=== PATIENT | female | born 1950 | race Caucasian/White ===

== ENCOUNTER → 2021-07-04 11:40 | Outpatient (CLI) | payer MEDICARE, SELFPAY ==
--- NOTE | ~2021-07-04 | CT_ITS ---
EXAMINATION: CT sinus wo con DATE: 07/04/2021 11:56 INDICATION: Chronic sinusitis TECHNIQUE: Computed tomography (CT) of the paranasal sinuses was performed without intravenous contra st. The dose-length product (DLP) was 264.97 mGy-cm. Iterative reconstruction was used. COMPARISON: None FINDINGS: There is normal development and pneumatization of the paranasal sinuses. There is mild muco evelyne thickening of the right maxillary sinus. The paranasal sinuses are otherwise clear. The bilateral ostiomeatal complexes are patent. Visualized soft tissues are unremarkable. IMPRESSION: 1. Minimal right maxillary sinusitis. Reviewed, dictated and finalized at location A. JUSTICE
== END ==
PROVIDERS: Visit Provider Otolaryngology
DX: J32.0 Chronic maxillary sinusitis (principal)
CPT/HCPCS: 70486

== ENCOUNTER 2021-11-27 11:05 | Emergency (ER) | payer MEDICARE, SELFPAY ==
--- NOTE | ~2021-11-27 | XR_ITS ---
XR hand RT min 3V DATE: 11/27/2021 11:32 INDICATION: Fourth digit pain radiating the fourth metacarpal. No injury. TECHNIQUE: 3 views COMPARISON: None FINDINGS: Diffuse osteopenia. Periarticular osteoarthritis, including particularly the proximal interphalangeal and distal interpha langeal joints of the second and third digits. No erosive change. No fracture or dislocation, periosteal reaction or bone destruction. IMPRESSION: Osteopenia Polyarticular osteoarthritis Reviewed, dictated and finalized at location A.
[2021-11-27 11:12] VITALS: BP 149/69; PULSE 78; RESP 16; TEMP 36.4; O2SAT 96
--- NOTE | 2021-11-27 11:22 | ED.UPPEXIN ---
HPI - Extremity Injury (Upper) General Chief Complaint: Extremity Injury, Upper Stated Complaint: right hand injury Time Seen by Provider: 11/27/21 11:23 Source: patient, RN notes reviewed and old records reviewed Mode of arrival: ambulatory Limitations: no limitations History of Present Illness HPI narrative: 70-year-old female who presents to [facility] with complaints of right hand pain since yesterday along the 4th digit extending into her left dorsal hand. patient reports that she was hanging clothes yesterday does not know of any blunt injury to her hand may of hyperextended it while hanging clothes. Report that she has been applying icy hot and ice to her hand and has taken some Tylenol for her discomfort. Patient has strong right radial pulse, is able to make loose fist with right hand but is painful. MD complaint: injury to: right and hand Onset (ago): day(s) (1) Other Extremity Injury: Right: hand Other injuries: none Handedness: right Treatments prior to arrival: other (Tylenol and IcyHot) Related Data Home Medications Medication Instructions Recorded Confirmed alprazolam 11/27/21 amlodipine 11/27/21 ezetimibe-simvastatin tablet 11/27/21 losartan-hydrochlorothiazide tablet 11/27/21 metformin mg 11/27/21 metoprolol succinate PO 11/27/21 omeprazole 11/27/21 11/27/21 sitagliptin [Januvia] mg 11/27/21 tiotropium bromide [Spiriva with INHALATION 11/27/21 HandiHaler] Allergies Allergy/AdvReac Type Severity Reaction Status Date / Time No Known Allergies Allergy Verified 11/27/21 11:19 Review of Systems Review of Systems: CONSTITUTIONAL: Denies fever, chills, or sweats. EYES: Denies visual changes, redness, or discharge. ENT: Denies rhinorrhea, congestion, sore throat, or otalgia. CARDIOVASCULAR: Denies chest pain, palpitations, or edema. RESPIRATORY: Denies cough or dyspnea. GASTROINTESTINAL: Denies abdominal pain, nausea, vomiting, or diarrhea. GENITOURINARY: Denies dysuria or hematuria. SKIN: Denies rash or itching. MUSCULOSKELETAL: Denies back pain, positive for right hand pain, or myalgia. NEUROLOGIC: Denies headache, numbness, or weakness. PSYCHIATRIC positive history of anxiety or depression All systems reviewed & are unremarkable except as noted in HPI and below PMFSH Past Medical History Medical History (Updated 11/28/21 @ 09:58 by Milly Dunn NP) Anxiety Diabetes Elevated cholesterol Hypertension Sleep apnea Surgical History Surgical History (Updated 11/28/21 @ 09:58 by Milly Dunn NP) No history of previous surgery Family History Family History (Updated 07/04/11 @ 15:39 by DOCTOR UNKNOWN) Father Acute myocardial infarction Other Cerebrovascular accident Diabetes mellitus Hypertension Social History Social History (Updated 11/27/21 @ 11:45 by Milly Dunn NP) Smoking packs per day: 1 Smoking cigarettes per day: 20.0 Years smoked: 50 Smoking pack-years: 50.00 Smoking status: Current every day smoker Alcohol intake: current Substance use type: does not use Living arrangements: with family Gender identity (if verbalized by the patient): Female Comments At time of signature, agree with nursing past medical, surgical, social and family history. There is no relevant family history pertinent to the presenting complaint Exam Narrative: GENERAL: Well-appearing, well-nourished, and in no acute distress. HEAD: Normocephalic, atraumatic. EYES: PERRLA and EOMI. ENT: Nares clear, no rhinorrhea or epistaxis. Mucous membranes moist.M's normal with good light reflex, throat pink with no lesions or exudates or tonsnil swelling NECK: Supple.no lymphadenopathy CHEST: Decreased to auscultation. No respiratory distress.SAO2 96% on room air HEART: Regular rate and rhythm. No murmur heard. Normal peripheral pulses. ABDOMEN: Soft, nontender, nondistended, normal active bowel sounds. EXTREMITIES: Normal range of motion. No edema.[employer]
== END 2021-11-27 12:00 | disposition home or self-care (01) ==
PROVIDERS: Emergency Provider Registered Nurse
DX: M79.641 Pain in right hand (principal); F41.9 Anxiety disorder, unspecified; I10 Essential (primary) hypertension; E11.9 Type 2 diabetes mellitus without complications; F17.210 Nicotine dependence, cigarettes, uncomplicated
CPT/HCPCS: 73130; 99203; G0463

== ENCOUNTER 2022-12-29 12:14 | Outpatient (CLI) | payer MEDICARE, SELFPAY ==
--- NOTE | ~2022-12-29 | US_ITS ---
EXAMINATION: US venous doppler [facility] DATE: 12/29/2022 12:55 INDICATION: Left lower limb pain and swelling TECHNIQUE: Plummer scale images without and with compression and Doppler images of the left lower extrem ity veins were obtained. COMPARISON: 02/05/2017 FINDINGS: The left common femoral vein, profunda femoral vein, femoral vein, popliteal vein, peroneal trunk, posterior tibial veins, and greater saphenous vein are patent. 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 IMPRESSION: 1. Patent left lower extremity veins. No evidence of deep venous thrombosis. 2. Fonseca's cyst. Reviewed, dictated and finalized at location B.
== END 2022-12-29 12:15 | disposition home or self-care (01) ==
PROVIDERS: PCP Family Medicine; Visit Provider Family Medicine
DX: R60.0 Localized edema (principal); M71.22 Synovial cyst of popliteal space [Baker], left knee
CPT/HCPCS: 93971

== ENCOUNTER 2023-04-09 23:18 | Inpatient (IN) | payer MEDICARE, SELFPAY ==
--- NOTE | ~2023-04-09 | XR_ITS ---
Portable chest x-ray Comparison: 06/10/2010 Clinical History: Shortness of breath, COPD Findings: There is central venous congestive change and probable minimal hazy pulmonary edema. No de finite pleural effusion. Cardiomediastinal silhouette is stable. Bones and soft tissues are unremark able. Impression: Probable minimal pulmonary edema and central congestive change, as above. Reviewed, dictated and finalized at location . Impression: Probable minimal pulmonary edema and central congestive change, as above.
--- NOTE | ~2023-04-09 | CT_ITS ---
CT of the Abdomen and Pelvis: Indication: Abdominal pain Technique: 2.5 mm axial scans were obtained through the abdomen and pelvis following intravenous adm inistration of 100 cc of Omnipaque 350. Dose reduction technique was used on this scan by utilizing a utomated exposure control and iterative reconstruction technique. The dose-length product (DLP) was 1 303.97 mGy-cm. Findings: Scans through the lung bases are unremarkable. There is probable diffuse fatty infiltration of liver. The spleen, pancreas, gallbladder, right adren al gland, and kidneys are within normal limits. Possible small left adrenal nodules versus left adren al hyperplasia. There are atherosclerotic calcifications of the aorta. No lymphadenopathy. No bowel obstruction or bowel wall thickening. Multiple fluid-filled loops of large and small bowel a re present. Images through the pelvis were performed. Urinary bladder unremarkable. No significant adnexal mass s een. No ascites. Impression: Fluid-filled large and small bowel loops. Consider nonspecific enterocolitis/diarrheal illness. Diffuse fatty infiltration of the liver. Possible small indeterminate left adrenal nodules versus left adrenal hyperplasia. Reviewed, dictated and finalized at [facility]. Impression: Fluid-filled large and small bowel loops. Consider nonspecific enterocolitis/di arrheal illness. Diffuse fatty infiltration of the liver. Possible small indeterminate left adrenal nodules versus left adrenal hyperplas ia.
[2023-04-09 23:57] VITALS: BP 120/60; PULSE 125; RESP 15; TEMP 36.9; O2SAT 86
[2023-04-10] VITALS (18 sets, daily range): BP systolic 112–144; BP diastolic 51–87; PULSE 65–130; RESP 18–31; TEMP 36.8–37.9; O2SAT 90–95
--- NOTE | 2023-04-10 | ECHO_ITS ---
Patient Info Name: Naya Lopez Age: 72 years : 1950 Gender: Female Ht: 68 in Wt: 220 lbs BSA: 2.22 m2 HR: 130 bpm BP: 121 / 75 mmHg Heart Rhythm: Sinus Rhythm Technical Quality: Good Exam Date: 04/10/2023 1:36 PM Exam Location: [facility] Pulmonary Patient Status: Outpatient Admit Date: 04/10/2023 Staff Ordering Physician: Nory Borrego DO Coin Machine Operator: Shawna Starr RDCS Attending Provider: Nory Borrego DO Referring Physician: Elmo NGUYEN; Exam Type: CA echo doppler color flow Study Info Indications - hypoxia, tacchycardia Complete two-dimensional, color flow and Doppler transthoracic echocardiogram is performed. Summary 1. Complete two-dimensional, color flow and Doppler transthoracic echocardiogram is performed. 2. Left ventricular chamber dimension is normal. 3. Left ventricular systolic function is normal, estimated at 65-70%. 4. There is mildly increased left ventricular wall thickness. 5. The left ventricular diastolic function is grade I diastolic dysfunction. 6. Right ventricular systolic function is normal. 7. There is small anterior pericardial effusion. 8. No significant valvular disease. Left Ventricle Left ventricular chamber dimension is normal. Left ventricular systolic function is normal, estimated at 65-70%. There is mildly increased left ventricular wall thickness. The left ventricular diastolic function is grade I diastolic dysfunction. Right Ventricle Right ventricular chamber dimension is normal. Right ventricular systolic function is normal. Left Atria Left atrial chamber dimension is normal. Right Atria Right atrial chamber dimension is normal. Atrial Septum Intact interatrial septum visualized by color flow imaging. Aortic Valve The aortic valve is probable trileaflet. There is no aortic valve stenosis. There is no aortic valve regurgitation. Pulmonic Valve The pulmonic valve is not well visualized. Mitral Valve There is trace mitral valve regurgitation. Tricuspid Valve There is trace tricuspid valve regurgitation. Pericardium/Pleural The pericardium appears epicardial fat pad. There is small anterior pericardial effusion. Inferior Vena Cava Dilated inferior vena cava with >50% collapse upon inspiration consistent with elevated right atrial pressure, 8 mmHg. Aorta The aortic root size at the sinus of Valsalva is normal. Left Ventricular Outflow Tract Name Value Normal LVOT 2D LVOT Diameter 2.0 cm LVOT Doppler LVOT Peak Gradient 7 mmHg LVOT Mean Gradient 4 mmHg LVOT VTI 31 cm LVOT VTI/AV VTI Ratio 0.9 LVOT Stroke Volume 96 ml LVOT CO 7.5 l/min LVOT CI 3.4 l/min/m2 Pulmonic Valve Name Value Normal RVOT Doppler RVOT Peak Gradient 2 mmHg
--- NOTE | 2023-04-10 00:23 | ECG_ITS ---
Measurements Intervals [place] Rate: 126 P: 60 IN: 138 QRS: -27 QRSD: 86 T: 66 QT: 320 QTc: 463 Interpretive Statements SINUS TACHYCARDIA POOR R WAVE PROGRESSION, ANTERIOR LEADS MINIMAL Q WAVES- INFERIOR LEADS BASELINE ARTIFACT- I, II, III, AVR, AVL, AVF ABNORMAL ECG NO PREVIOUS ECG AVAILABLE FOR COMPARISON Electronically Signed On 04-10-2023 11:35:22 CDT by Lawrence Woodward D.O.
--- NOTE | 2023-04-10 00:40 | ECG_ITS ---
Measurements Intervals [place] Rate: 123 P: 62 AK: 160 QRS: 2 QRSD: 76 T: 59 QT: 314 QTc: 450 Interpretive Statements SINUS TACHYCARDIA ATRIAL PREMATURE COMPLEX CONSIDER ANTERIOR INFARCT, AGE INDETERMINATE CONSIDER INFERIOR INFARCT, AGE INDETERMINATE BASELINE WANDER- I, II, AVR, AVL, AVF ABNORMAL ECG COMPARED TO ECG 04/10/2023 05:42:00 NO SIGNIFICANT CHANGES Electronically Signed On 04-10-2023 8:26:33 CDT by Lawrence Woodward D.O.
[2023-04-10] MEDS: SODIUM CHLORIDE 0.9% IV 1,000 ML 999 ML IV CONT ×2 (00:56→03:37)
[2023-04-10] MEDS: ONDANSETRON INJ 4 MG/2 ML VIAL IV PUSH (00:57)
[2023-04-10] MEDS: FAMOTIDINE 20 MG/2 ML VIAL IV PUSH (00:57)
[2023-04-10 01:00] LABS: Basophils Absolute Auto 0.1 K/mm3 (0.0-0.1); Basophils Percent Auto 0.4 % (0.2-1.2); Eosinophils Absolute Auto 0.1 K/mm3 (0-0.3); Eosinophils Percent Auto 1.1 % (0-4.4); Hematocrit 51.6 % (37.0-47.0); Hemoglobin 16.6 g/dL (12.0-15.0); Immature Granulocyte Absolute 0.03 K/mm3 (0.00-0.031); Immature Granulocyte Percent A 0.3 % (0-0.5); Immature Platelet Fraction Pct 4.4 % (0.9-11.2); Lymphocytes Absolute Auto 0.73 K/mm3 (0.9-3.2); Lymphocytes Percent Auto 6.3 % (18.3-44.2); Mean Corpuscular HGB Conc 32.2 g/dl (32-36); Mean Corpuscular Hemoglobin 25.9 pg (26-34); Mean Corpuscular Volume 80.4 fl (80-100); Mean Platelet Volume 10.3 fl (7.4-10.4); Monocytes Percent Auto 8.3 % (2.6-8.5); Neutrophils Absolute Auto 9.6 K/mm3 (1.3-6.7); Neutrophils Percent Auto 83.6 % (45.5-73.1); Platelet Count Result 261 k/mm3 (150-375); Red Blood Count 6.42 M/mm3 (4.2-5.4); Red Cell Distribution Width 22.4 % (11.5-14.5); White Blood Count 11.5 K/mm3 (4.5-10.0)
[2023-04-10 01:03] LABS: Anisocytosis 1+ (NORMAL); Platelet Estimate Adequate (Adequate)
[2023-04-10 01:06] LABS: Lactic Acid Reflex 2.1 mmol/L (0.7-2.0); Schistocytes None Seen (NORMAL)
[2023-04-10 01:07] LABS: Alanine Aminotransferase 29 U/L (6-35); Albumin Level 3.9 g/dL (3.5-5.1); Alkaline Phosphatase 74 U/L (38-126); Anion Gap 14 mmol/L (8-16); Aspartate Amino Transferase 36 U/L (14-36); Bilirubin,Total 0.7 mg/dL (0.2-1.3); Blood Urea Nitrogen 21 mg/dL (7-17); Calcium 8.9 mg/dL (8.4-10.2); Carbon Dioxide 22 mmol/L (22-30); Chloride 97 mmol/L (98-107); Estimated CRCL calculation 51 ml/min; Estimated Glomerular Filt Rate 54; Glucose 197 mg/dL (65-110); Potassium 3.5 mmol/L (3.4-5.0); Sodium 133 mmol/L (137-145)
[2023-04-10 01:27] LABS: Troponin I 0.017 ng/mL (0.000-0.034)
--- NOTE | 2023-04-10 02:33 | ED.WEAKNESS ---
HPI - Weakness General Chief complaint: Weakness Stated complaint: diarrhea, nausea, weakness Time Seen by Provider: 04/10/23 00:15 History of Present Illness HPI Narrative: Patient presents to the emergency department from home with her daughter. She states she feels horrible. Has had persistent nausea vomiting and diarrhea at home for the past few days. Also generalized abdominal pain. Denies fevers and chills. Tonight was noted to be hypoxic and tachycardic by EMS. She has a history of COPD but does not use oxygen at baseline. Now generally weak secondary to persistent GI symptoms. Denies fevers. Patient is accompanied by her daughter and her daughter states the patient is never sick like this Related Data Home Medications Medication Instructions Recorded Confirmed alprazolam 0.25 mg tablet 0.25 mg PO TID PRN Anxiety 11/27/21 04/10/23 amlodipine 5 mg tablet 5 mg PO DAILY 11/27/21 04/10/23 ezetimibe 10 mg-simvastatin 10 mg 1 tablet PO DAILY 11/27/21 04/10/23 tablet losartan 100 1 tablet PO DAILY 11/27/21 04/10/23 mg-hydrochlorothiazide 25 mg tablet metformin 500 mg tablet 1,000 mg PO BID 11/27/21 04/10/23 metoprolol succinate 50 mg 100 mg PO DAILY 11/27/21 04/10/23 tablet,extended release 24 hr omeprazole 20 mg capsule,delayed 20 mg PO DAILY 11/27/21 04/10/23 release sitagliptin phosphate 100 mg 100 mg PO DAILY 11/27/21 04/10/23 tablet (Januvia) tiotropium bromide 18 mcg capsule 1 cap inhalation DAILY 11/27/21 04/10/23 with inhalation device (Spiriva with HandiHaler) Adult Multivitamin with Iron 1 tablet PO DAILY 04/10/23 04/10/23 aspirin 81 mg tablet,delayed 81 mg PO DAILY 04/10/23 04/10/23 release budesonide-formoterol HFA 160 2 puff inhalation BID 04/10/23 04/10/23 mcg-4.5 mcg/actuation aerosol inhaler semaglutide 0.25 mg or 0.5 mg (2 0.5 mg subcut WEEKLY 04/10/23 04/10/23 mg/3 mL) subcutaneous pen injector ([employer]) Allergies Allergy/AdvReac Type Severity Reaction Status Date / Time No Known Allergies Allergy Verified 04/10/23 00:11 Review of Systems Review of Systems: Review of systems negative except what is documented in the [facility] Past Medical History Medical History (Updated 04/10/23 @ 07:12 by Nory Borrego DO) Anxiety Diabetes Elevated cholesterol GERD (gastroesophageal reflux disease) Hypertension Obesity Sleep apnea Surgical History Surgical History (Updated 04/10/23 @ 07:02 by Nory Borrego DO) History of tubal ligation Family History Family History (Updated 04/10/23 @ 07:13 by Nory Borrego DO) Father Acute myocardial infarction, Onset Age: 39 Mother Diabetes mellitus Thyroid disease Cerebrovascular accident Hypertension Social History Social History (Updated 04/10/23 @ 07:14 by Nory Borrego DO) Social History: The patient lives with her of 53 years. She has smoked at least 1.5 packs of cigarettes per day since she was a teenager. She does not drink significant amount of alcohol. She denies illicit substance use. 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 She raised 2 daughters who are both healthy. Code status: Full code Smoking packs per day: 1 Smoking cigarettes per day: 20.0 Years smoked: 50 Smoking pack-years: 50.00 Smoking status: Current every day smoker Alcohol intake: current Substance use: never Substance use type: does not use Lack of Transportation: No Lack of Food: Never True Current Housing: I Have Housing Concerned About Future Housing: No Difficulty Paying Gas/Electric Bills: No Difficulty Paying for Meds: No Currently Unemployed: No Education: High School Diploma/GED Difficulty w/ Childcare or Family Care: No Living arrangements: with family Gender identity (if verbalized by the patient): Female Spiritual care concerns: No Exam Narrative: GENERAL: Well-appearing, well-nourished, and in no acute distress.
[2023-04-10] MEDS: LOPERAMIDE HCL 2 MG CAPSULE 4 MG PO (02:39)
[2023-04-10 03:53] LABS: Appearance Urine Cloudy (Clear); Bacteria Urine 4+ /hpf; Bilirubin Urine Negative (Negative); Blood Urine 1+ (Negative); Color Urine Yellow (Yellow); Glucose Urine UA Negative (Negative); Ketones Urine Negative (Negative); Leukocyte Esterase Ur 1+ LEU/UL (Negative); Need Manual Microscopic Reviewed; Nitrate Urine Negative (Negative); Protein Urine 1+ mg/dL (Negative); Specific Grav Ur 1.077 (1.001-1.035); Squamous Epithelial Cell Urine Moderate /hpf (Few); Urobilinogen Urine 0.2 mg/dL (<2.0); WBC Urine >100 /hpf
[2023-04-10 03:54] LABS: Reflex Lactic Acid Yes or No Add Lactic
[2023-04-10 03:54] LABS: Add Urine Microscopic? YES
[2023-04-10 03:58] LABS: Troponin I 0.023 ng/mL (0.000-0.034)
--- NOTE | 2023-04-10 05:20 | ECG_ITS ---
Measurements Intervals [place] Rate: 129 P: 60 VT: 155 QRS: -20 QRSD: 71 T: 62 QT: 304 QTc: 447 Interpretive Statements SINUS TACHYCARDIA POOR R WAVE PROGRESSION, ANTERIOR LEADS INFERIOR INFARCT, AGE INDETERMINATE BASELINE ARTIFACT- I, III, AVL ABNORMAL ECG COMPARED TO ECG 04/10/2023 00:23:18 NO SIGNIFICANT CHANGES Electronically Signed On 04-10-2023 6:51:49 CDT by Lawrence Woodward D.O.
[2023-04-10] MEDS: VANCOMYCIN ORAL 125 MG/2.5 ML SYRUP PO (05:34)
[2023-04-10 05:37] LABS: Lactic Acid 1.4 mmol/L (0.7-2.0)
--- NOTE | 2023-04-10 06:56 | PM.IMHP ---
H&P: HPI History of Present Illness Date/Time: 04/10/23 05:50 Chief Complaint: Diarrhea, vomiting, weak Narrative: 72-year-old female with a past medical history of COPD, type 2 diabetes mellitus, hyperlipidemia and essential hypertension who presented to the ER via EMS with her daughter due to nausea vomiting and diarrhea. The patient reports that she has never felt this sick with diarrhea and her life. No one else in the house has been ill. She has not had any fevers or chills. She reports that she is having generalized abdominal cramping and feels as if her abdomen is been more distended the last couple of days. Symptoms have been going on for 3 days. She denies any recent antibiotic exposure or travel. She has been having some persistent nausea with intermittent vomiting. She denies any hematemesis or coffee-ground emesis. She has been having intermittent episodes of feeling lightheaded with position changes. She reports that she feels extremely weak and fatigued and just wants to sleep. She has not had any hematochezia or melena. She does have a history of chronic tobacco use and COPD. He she continues to smoke. She does have a dry nonproductive cough unchanged from her baseline. She does not use oxygen at home. She has not noticed herself wheezing. She denies any dysuria or increased urinary frequency or urgency. She has not noticed this any hematuria. She does not have a history of frequent UTIs. In the ER the patient is noted to have heart rates in the 120s to 130s. EKG confirmed sinus tachycardia. The patient looks significantly volume depleted. She received 2 L of isotonic fluids in bolus. Patient denies any history of orthopnea paroxysmal nocturnal dyspnea or lower extremity swelling. She denies history of heart failure. She has not taken any of her medications for the last 3 days due to her symptoms. This includes her home metoprolol. Review of Systems Review of Systems: 12 systems were reviewed with pertinent positives and negatives per HPI. Except as documented in the HPI, all other systems were reviewed and are negative. [facility] Past Medical History Medical History (Updated 04/10/23 @ 07:35 by oNry Borrego DO) Anxiety Diabetes Elevated cholesterol GERD (gastroesophageal reflux disease) Hypertension Obesity Sleep apnea Surgical History Surgical History (Updated 04/10/23 @ 07:02 by Nory Borrego DO) History of tubal ligation Family History Family History (Updated 04/10/23 @ 07:13 by Nory Borrego DO) Father Acute myocardial infarction, Onset Age: 39 Mother Diabetes mellitus Thyroid disease Cerebrovascular accident Hypertension Social History Social History (Updated 04/10/23 @ 07:14 by Nory Borrego DO) Social History: The patient lives with her of 53 years. She has smoked at least 1.5 packs of cigarettes per day since she was a teenager. She does not drink significant amount of alcohol. She denies illicit substance use. She used to work in [employer] and [employer]. She raised 2 daughters who are both healthy. Code status: Full code Smoking packs per day: 1 Smoking cigarettes per day: 20.0 Years smoked: 50 Smoking pack-years: 50.00 Smoking status: Current every day smoker Alcohol intake: current Substance use: never Substance use type: does not use Lack of Transportation: No Lack of Food: Never True Current Housing: I Have Housing Concerned About Future Housing: No Difficulty Paying Gas/Electric Bills: No Difficulty Paying for Meds: No Currently Unemployed: No Education: High School Diploma/GED Difficulty w/ Childcare or Family Care: No Living arrangements: with family Gender identity (if verbalized by the patient): Female Spiritual care concerns: No Meds Home Medications and Allergies Home Medications Medication Instructions Recorded Confirmed Type alprazolam 0.25 mg tablet 0.
--- NOTE | 2023-04-10 06:57 | ADMGEN ---
This patient, Naya Lopez, was admitted to 2 Medical Room 256-01. Patient/family oriented to hospital policies and general routines including ID bracelet, bed and alarms, visiting hours, pain management, procedures, bathroom and other care routines, personal items, smoking policy, room service/diet, and visiting hours. Information on how to activate the Rapid Response Team has been discussed. Patient/Family are encouraged to report perceived risks to care and to ask questions if they do not understand what they are told or what they should do.
[2023-04-10] MEDS: ENOXAPARIN 40 MG/0.4 ML SYRINGE SUB-Q (08:26)
[2023-04-10] MEDS: SODIUM CHLORIDE 0.9% IV 1,000 ML 100 ML IV CONT ×2 (08:26→21:32)
[2023-04-10] MEDS: PANTOPRAZOLE 40 MG TABLET PO (08:27)
[2023-04-10] MEDS: METOPROLOL SUCCINATE EXT REL 100 MG TABCR PO (08:27)
[2023-04-10] MEDS: ASPIRIN 81 MG ENTERIC TABLET PO (08:27)
[2023-04-10 09:04] LABS: Glucose Point of Care 197 mg/dl (65-105)
[2023-04-10] MEDS: ACETAMINOPHEN 325 MG TABLET 650 MG PO (09:08)
[2023-04-10] MEDS: FLUTICASONE/SALMETEROL 115-21 MCG INHALER 1 PUFF 2 PUFF INHALATION ×2 (09:10→19:33)
[2023-04-10 10:46] LABS: Toxigenic C. Diff NEGATIVE (NEGATIVE)
--- NOTE | 2023-04-10 10:52 | PM.IMPN ---
Progress Note: A&P Assessment and Plan (1) Enterocolitis: Code(s): K52.9 - Noninfective gastroenteritis and colitis, unspecified Status: Acute Assessment and Plan: Stool studies pending Hold off antibiotics for now, suspect viral etiology C diff negative Clear liquid diet, advanced as tolerated (2) Acute dehydration: Code(s): E86.0 - Dehydration Status: Acute Assessment and Plan: Normal saline at 100 mL per hr (3) Hepatic steatosis: Code(s): K76.0 - Fatty (change of) liver, not elsewhere classified Status: Acute (4) Sinus tachycardia: Code(s): R00.0 - Tachycardia, unspecified Status: Acute Assessment and Plan: Likely secondary to dehydration, monitor after fluid resuscitation (5) Type 2 diabetes mellitus with hyperglycemia, without long-term current use of insulin: Code(s): E11.65 - Type 2 diabetes mellitus with hyperglycemia Status: Acute Assessment and Plan: Accu-Cheks, sliding scale insulin, hold metformin Blood glucose reviewed 04/10 (6) Sepsis with acute hypoxic respiratory failure: Qualifiers: Sepsis type: sepsis due to unspecified organism Severe sepsis shock status: without septic shock Qualified Code(s): A41.9 - Sepsis, unspecified organism; R65.20 - Severe sepsis without septic shock; J96.01 - Acute respiratory failure with hypoxia Code(s): A41.9 - Sepsis, unspecified organism; R65.20 - Severe sepsis without septic shock; J96.01 - Acute respiratory failure with hypoxia Status: Acute Assessment and Plan: Technically met sepsis criteria with tachycardia, leukocytosis, acute enterocolitis Supportive care, no signs of COPD exacerbation, some congestion noted on chest x-ray, monitor fluid status with IV fluid resuscitation Check echo Hold off on antibiotics for now, check procalcitonin, lactic acid and CRP Plan DVT prophylaxis with Lovenox GI prophylaxis not indicated Code status full code Patient has sepsis with criteria met with tachycardia, leukocytosis in the setting of acute enterocolitis. Enterocolitis is presumed to be viral in nature however will send stool for culture, C diff and Giardia and Cryptosporidium. Patient has not had any antibiotic exposure that leave her at increased risk for C diff. will continue IV fluid hydration. Patient did have hypoxia noted in the field. The patient does have some polycythemia. Part of that is likely due to hemoconcentration with patient's marked dehydration. However given the patient's long-term smoking history would be out of the question for the patient also have some chronic at least borderline hypoxia at home. Chest x-ray was personally reviewed and did demonstrate some possible mild minimal pulmonary edema. However, patient is clearly intravascularly volume depleted. Will continue with IV fluid hydration. Anticipate the patient's tachycardia will improve with IV fluid hydration. Will continue monitor on telemetry. Given the patient's possible pulmonary edema on x-ray will check an echocardiogram to rule out any other structural heart problem that could be precipitating or worsening the patient's tachycardia. Will resume the patient's home beta-mahogany. CT did demonstrate hepatic steatosis. Patient denies known history of hepatic steatosis. Patient is already on statin therapy at home. Patient would benefit from diet lifestyle modifications on discharge. Patient does have type 2 diabetes mellitus currently glucoses are uncontrolled due to patient not having taken her oral hypoglycemics from last 2 days. Will resume the patient's home Januvia. Will hold metformin as this could make the patient have more loose stools. Will place patient on moderate sliding scale insulin with Accu-Cheks a.c. HS. Will event status tolerated to consistent carbohydrate. Patient has been admitted as observation status. Subjective Date/time seen:
[2023-04-10 12:00] LABS: Glucose Point of Care 153 mg/dl (65-105)
--- NOTE | 2023-04-10 14:02 | PC.NURSE ---
On 04/10/23, the student, [Andree Bro], provided care and completed [facility] documentation on this patient. I have reviewed the student's documentation and agree with the findings.
[2023-04-10 16:46] LABS: Glucose Point of Care 114 mg/dl (65-105)
[2023-04-10 19:11] LABS: Lactic Acid Reflex 1.8 mmol/L (0.7-2.0)
[2023-04-10 19:40] LABS: CRP 15.4 mg/dL (<1.0)
[2023-04-10 21:57] LABS: Glucose Point of Care 156 mg/dl (65-105)
[2023-04-10] MEDS: ALPRAZolam (*CRX) 0.25 MG TABLET PO (23:04)
[2023-04-11] VITALS (15 sets, daily range): BP systolic 116–132; BP diastolic 49–70; PULSE 10–119; RESP 17–20; TEMP 36.3–36.9; O2SAT 91–98
[2023-04-11 00:44] LABS: Procalcitonin 0.3 ng/mL
[2023-04-11 05:31] LABS: Hematocrit 46.2 % (37.0-47.0); Hemoglobin 14.4 g/dL (12.0-15.0); Mean Corpuscular HGB Conc 31.2 g/dl (32-36); Mean Corpuscular Hemoglobin 25.4 pg (26-34); Mean Corpuscular Volume 81.5 fl (80-100); Mean Platelet Volume 10.3 fl (7.4-10.4); Platelet Count Result 204 k/mm3 (150-375); Red Blood Count 5.67 M/mm3 (4.2-5.4); Red Cell Distribution Width 21.7 % (11.5-14.5); White Blood Count 4.1 K/mm3 (4.5-10.0)
[2023-04-11 05:59] LABS: Alanine Aminotransferase 42 U/L (6-35); Albumin Level 3.1 g/dL (3.5-5.1); Alkaline Phosphatase 58 U/L (38-126); Anion Gap 5 mmol/L (8-16); Aspartate Amino Transferase 73 U/L (14-36); Bilirubin,Total 0.6 mg/dL (0.2-1.3); Blood Urea Nitrogen 13 mg/dL (7-17); Calcium 8.1 mg/dL (8.4-10.2); Carbon Dioxide 25 mmol/L (22-30); Chloride 103 mmol/L (98-107); Estimated CRCL calculation 71 ml/min; Estimated Glomerular Filt Rate > 60; Glucose 103 mg/dL (65-110); Potassium 3.4 mmol/L (3.4-5.0); Sodium 133 mmol/L (137-145)
[2023-04-11] MEDS: ACETAMINOPHEN 325 MG TABLET 650 MG PO (06:32)
[2023-04-11 08:21] LABS: Glucose Point of Care 116 mg/dl (65-105)
[2023-04-11] MEDS: PANTOPRAZOLE 40 MG TABLET PO (08:24)
[2023-04-11] MEDS: ASPIRIN 81 MG ENTERIC TABLET PO (08:24)
[2023-04-11] MEDS: METOPROLOL SUCCINATE EXT REL 100 MG TABCR PO (08:24)
[2023-04-11] MEDS: ENOXAPARIN 40 MG/0.4 ML SYRINGE SUB-Q (08:25)
[2023-04-11] MEDS: SODIUM CHLORIDE 0.9% IV 1,000 ML 100 ML IV CONT ×2 (08:25→20:41)
[2023-04-11] MEDS: FLUTICASONE/SALMETEROL 115-21 MCG INHALER 1 PUFF 2 PUFF INHALATION ×2 (10:31→19:42)
[2023-04-11 12:06] LABS: Glucose Point of Care 142 mg/dl (65-105)
--- NOTE | 2023-04-11 12:15 | PM.IMPN ---
Progress Note: A&P Assessment and Plan (1) Enterocolitis: Code(s): K52.9 - Noninfective gastroenteritis and colitis, unspecified Status: Acute Assessment and Plan: CT revealing enterocolitis seems to be viral etiology Stool studies pending Hold off antibiotics for now, suspect viral etiology C diff negative Clear liquid diet, advanced as tolerated Will start Imodium p.r.n. check COVID (2) Acute dehydration: Code(s): E86.0 - Dehydration Status: Acute Assessment and Plan: Normal saline at 100 mL per hr (3) Sinus tachycardia: Code(s): R00.0 - Tachycardia, unspecified Status: Acute Assessment and Plan: Likely secondary to dehydration, monitor after fluid resuscitation (4) Type 2 diabetes mellitus with hyperglycemia, without long-term current use of insulin: Code(s): E11.65 - Type 2 diabetes mellitus with hyperglycemia Status: Acute Assessment and Plan: Accu-Cheks, sliding scale insulin, hold metformin Blood glucose reviewed (5) Sepsis with acute hypoxic respiratory failure: Qualifiers: Sepsis type: sepsis due to unspecified organism Severe sepsis shock status: without septic shock Qualified Code(s): A41.9 - Sepsis, unspecified organism; R65.20 - Severe sepsis without septic shock; J96.01 - Acute respiratory failure with hypoxia Code(s): A41.9 - Sepsis, unspecified organism; R65.20 - Severe sepsis without septic shock; J96.01 - Acute respiratory failure with hypoxia Status: Acute Assessment and Plan: Technically met sepsis criteria with tachycardia, leukocytosis, acute enterocolitis Supportive care, no signs of COPD exacerbation, some congestion noted on chest x-ray, monitor fluid status with IV fluid resuscitation Echocardiogram revealing EF of 65-70% with grade 1 diastolic dysfunction no significant valvular disease Hold off on antibiotics for now; procalcitonin within normal limits, lactic acid within normal limits and CRP elevated at 15 Patient requiring 4 L of oxygen. Patient typically does not wear any oxygen at home. I suspect the patient will need oxygen at discharge. (6) Hepatic steatosis: Code(s): K76.0 - Fatty (change of) liver, not elsewhere classified Status: Acute Assessment and Plan: CT did demonstrate hepatic steatosis. Patient denies known history of hepatic steatosis. Patient is already on statin therapy at home. Patient would benefit from diet lifestyle modifications on discharge. Subjective Date/time seen: 09/13/23 12:15 Interval history: Patient continues to have diarrhea. She denies any abdominal pain, nausea vomiting. She continues to wear oxygen. Patient has not been able to be weaned off of her oxygen and will likely need to be sent home on it. She is not have any cough or sputum production. Per patient's daughter is likely that she has needed oxygen for some time now although patient has not been evaluated by . She currently still smokes. Highly advised patient to quit as well as take better care of her overall health. Exam Narrative: GENERAL: Comfortable, no acute distress HENMT: moist mucous membranes EYES: EOM intact b/l NECK: no lymphadenopathy RESPIRATORY: clear to auscultation CARDIO: RRR GI: soft, nontender, bowel sounds present SKIN: no rashes EXTREMITIES: no edema, redness or tenderness Objective Data Vital Signs Vital Signs: Vital Signs - 24 hr 04/10/23 14:22 04/10/23 16:00 04/10/23 19:34 Temperature 98.2 F Pulse Rate 97 89 99 Respiratory Rate 18 20 Blood Pressure 112/51 L Pulse Oximetry 91 Oxygen Delivery Oxygen Flow Rate Fraction of Inspired Oxygen 04/10/23 19:34 04/10/23 20:00 04/10/23 20:38 Temperature 98.7 F 98.7 F Pulse Rate 99 107 H 107 H Respiratory Rate 20 20 20 Blood Pressure 135/65 135/65 Pulse Oximetry 93 92 92 Oxygen Delivery Nasal Cannula Oxyge
[2023-04-11 12:49] LABS: SARS-CoV-2 RNA PCR Negative (Negative)
[2023-04-11] MEDS: LOPERAMIDE HCL 2 MG CAPSULE PO ×5 (13:32→23:49)
[2023-04-11] MEDS: cefTRIAXone 2 GM/NS 100 ML 2 GM/100 ML BAG IVPB (13:33)
[2023-04-11] MEDS: ONDANSETRON INJ 4 MG/2 ML VIAL IV PUSH ×2 (16:50→23:52)
[2023-04-11 17:25] LABS: Glucose Point of Care 138 mg/dl (65-105)
[2023-04-11] MEDS: ALPRAZolam (*CRX) 0.25 MG TABLET PO (20:36)
[2023-04-11 20:49] LABS: Glucose Point of Care 149 mg/dl (65-105)
[2023-04-12] VITALS (14 sets, daily range): BP systolic 112–124; BP diastolic 56–65; PULSE 85–96; RESP 16–21; TEMP 36.1–37.1; O2SAT 93–100
[2023-04-12 06:04] LABS: Basophils Percent Auto 0.6 % (0.2-1.2); Eosinophils Percent Auto 0.3 % (0-4.4); Hematocrit 46.1 % (37.0-47.0); Hemoglobin 14.8 g/dL (12.0-15.0); Immature Granulocyte Absolute 0.05 K/mm3 (0.00-0.031); Immature Granulocyte Percent A 0.8 % (0-0.5); Lymphocytes Absolute Auto 0.73 K/mm3 (0.9-3.2); Lymphocytes Percent Auto 11.1 % (18.3-44.2); Mean Corpuscular HGB Conc 32.1 g/dl (32-36); Mean Corpuscular Hemoglobin 25.6 pg (26-34); Mean Corpuscular Volume 79.8 fl (80-100); Mean Platelet Volume 9.9 fl (7.4-10.4); Monocytes Percent Auto 15.1 % (2.6-8.5); Neutrophils Absolute Auto 4.7 K/mm3 (1.3-6.7); Neutrophils Percent Auto 72.1 % (45.5-73.1); Platelet Count Result 235 k/mm3 (150-375); Red Blood Count 5.78 M/mm3 (4.2-5.4); Red Cell Distribution Width 21.6 % (11.5-14.5); White Blood Count 6.6 K/mm3 (4.5-10.0)
[2023-04-12 06:19] LABS: Alanine Aminotransferase 57 U/L (6-35); Albumin Level 3.2 g/dL (3.5-5.1); Alkaline Phosphatase 65 U/L (38-126); Anion Gap 4 mmol/L (8-16); Aspartate Amino Transferase 79 U/L (14-36); Bilirubin,Total 0.4 mg/dL (0.2-1.3); Blood Urea Nitrogen 13 mg/dL (7-17); Calcium 8.5 mg/dL (8.4-10.2); Carbon Dioxide 25 mmol/L (22-30); Chloride 105 mmol/L (98-107); Estimated CRCL calculation 82 ml/min; Estimated Glomerular Filt Rate > 60; Glucose 98 mg/dL (65-110); Potassium 3.5 mmol/L (3.4-5.0); Sodium 134 mmol/L (137-145)
[2023-04-12] MEDS: SODIUM CHLORIDE 0.9% IV 1,000 ML 100 ML IV CONT ×2 (06:50→18:35)
[2023-04-12 08:45] LABS: Glucose Point of Care 106 mg/dl (65-105)
[2023-04-12] MEDS: ASPIRIN 81 MG ENTERIC TABLET PO (09:05)
[2023-04-12] MEDS: METOPROLOL SUCCINATE EXT REL 100 MG TABCR PO (09:05)
[2023-04-12] MEDS: PANTOPRAZOLE 40 MG TABLET PO (09:05)
[2023-04-12] MEDS: ENOXAPARIN 40 MG/0.4 ML SYRINGE SUB-Q (09:06)
[2023-04-12] MEDS: FLUTICASONE/SALMETEROL 115-21 MCG INHALER 1 PUFF 2 PUFF INHALATION (09:27)
[2023-04-12 12:19] LABS: Glucose Point of Care 137 mg/dl (65-105)
--- NOTE | 2023-04-12 13:32 | PM.IMPN ---
Progress Note: A&P Assessment and Plan (1) Salmonella enteritis: Code(s): A02.0 - Salmonella enteritis Status: Acute Assessment and Plan: CT revealing enterocolitis Stool studies with positive salmonella in the stool C diff negative Patient started on ceftriaxone 04/11/23. Waiting on susceptibilities to return. Blood cultures no growth to date (2) Urinary tract infection: Code(s): N39.0 - Urinary tract infection, site not specified Status: Acute Assessment and Plan: Urine culture containing Klebsiella pneumonia and Salmonella species. Ceftriaxone initiated. Urine susceptibilities pending. (3) Acute dehydration: Code(s): E86.0 - Dehydration Status: Resolved Assessment and Plan: Normal saline discontinued. (4) Sinus tachycardia: Code(s): R00.0 - Tachycardia, unspecified Status: Resolved Assessment and Plan: Likely secondary to dehydration, monitor after fluid resuscitation Resolved (5) Type 2 diabetes mellitus with hyperglycemia, without long-term current use of insulin: Code(s): E11.65 - Type 2 diabetes mellitus with hyperglycemia Status: Acute Assessment and Plan: Accu-Cheks, sliding scale insulin, hold metformin Blood glucose reviewed (6) Sepsis with acute hypoxic respiratory failure: Qualifiers: Sepsis type: sepsis due to unspecified organism Severe sepsis shock status: without septic shock Qualified Code(s): A41.9 - Sepsis, unspecified organism; R65.20 - Severe sepsis without septic shock; J96.01 - Acute respiratory failure with hypoxia Code(s): A41.9 - Sepsis, unspecified organism; R65.20 - Severe sepsis without septic shock; J96.01 - Acute respiratory failure with hypoxia Status: Resolved Assessment and Plan: Technically met sepsis criteria with tachycardia, leukocytosis, acute enterocolitis Supportive care, no signs of COPD exacerbation, some congestion noted on chest x-ray, monitor fluid status with IV fluid resuscitation Echocardiogram revealing EF of 65-70% with grade 1 diastolic dysfunction no significant valvular disease Hold off on antibiotics for now; procalcitonin within normal limits, lactic acid within normal limits and CRP elevated at 15 Patient requiring 4 L of oxygen. Patient typically does not wear any oxygen at home. I suspect the patient will need oxygen at discharge. Resolved (7) Hepatic steatosis: Code(s): K76.0 - Fatty (change of) liver, not elsewhere classified Status: Acute Assessment and Plan: CT did demonstrate hepatic steatosis. Patient denies known history of hepatic steatosis. Patient is already on statin therapy at home. Patient would benefit from diet lifestyle modifications on discharge. Subjective Date/time seen: 04/12/23 13:32 Interval history: Patient feeling much better today. Discussed with patient this is likely due to starting antibiotic yesterday. The frequency of her diarrhea has decreased. Discussed with both daughter and patient the treatment course of salmonella and they voiced their understanding. Waiting for susceptibilities return and 48 hour negative blood cultures prior to discharging. Exam Narrative: GENERAL: Comfortable, no acute distress HENMT: moist mucous membranes EYES: EOM intact b/l NECK: no lymphadenopathy RESPIRATORY: clear to auscultation CARDIO: RRR GI: soft, nontender, bowel sounds present SKIN: no rashes EXTREMITIES: no edema, redness or tenderness Objective Data Vital Signs Vital Signs: Vital Signs - 24 hr 04/11/23 14:00 04/11/23 16:00 04/11/23 19:40 Temperature 97.8 F Pulse Rate 92 94 93 Respiratory Rate 18 18 Blood Pressure 116/57 L Pulse Oximetry 94 Oxygen Delivery Oxygen Flow Rate Fraction of Inspired Oxygen 04/11/23 20:00 04/11/23 20:00 04/11/23 22:00 Temperature 97.3 F L Pulse Rate 92 91 Respiratory R
[2023-04-12] MEDS: cefTRIAXone 2 GM/NS 100 ML 2 GM/100 ML BAG IVPB (14:35)
--- NOTE | 2023-04-12 15:22 | PC.NURSE ---
On 04/12/23, the student, [Margoth Herman], provided care and completed [facility] documentation on this patient. I have reviewed the student's documentation and agree with the findings.
[2023-04-12 17:01] LABS: Glucose Point of Care 120 mg/dl (65-105)
[2023-04-12 20:39] LABS: Glucose Point of Care 118 mg/dl (65-105)
[2023-04-12] MEDS: ALPRAZolam (*CRX) 0.25 MG TABLET PO (22:30)
[2023-04-13] VITALS (14 sets, daily range): BP systolic 126; BP diastolic 63; PULSE 80–104; RESP 20–21; TEMP 36.4; O2SAT 87–100
[2023-04-13] MEDS: SODIUM CHLORIDE 0.9% IV 1,000 ML 100 ML IV CONT (05:00)
[2023-04-13 06:18] LABS: Hematocrit 45.2 % (37.0-47.0); Hemoglobin 14.2 g/dL (12.0-15.0); Mean Corpuscular HGB Conc 31.4 g/dl (32-36); Mean Corpuscular Hemoglobin 25.5 pg (26-34); Mean Corpuscular Volume 81.1 fl (80-100); Mean Platelet Volume 10.4 fl (7.4-10.4); Platelet Count Result 243 k/mm3 (150-375); Red Blood Count 5.57 M/mm3 (4.2-5.4); Red Cell Distribution Width 21.9 % (11.5-14.5); White Blood Count 6.2 K/mm3 (4.5-10.0)
[2023-04-13 06:19] LABS: Anion Gap 4 mmol/L (8-16); Blood Urea Nitrogen 10 mg/dL (7-17); Calcium 8.4 mg/dL (8.4-10.2); Carbon Dioxide 23 mmol/L (22-30); Chloride 108 mmol/L (98-107); Estimated CRCL calculation 96 ml/min; Estimated Glomerular Filt Rate > 60; Glucose 102 mg/dL (65-110); Potassium 3.5 mmol/L (3.4-5.0); Sodium 135 mmol/L (137-145)
[2023-04-13 08:23] LABS: Glucose Point of Care 104 mg/dl (65-105)
[2023-04-13] MEDS: FLUTICASONE/SALMETEROL 115-21 MCG INHALER 1 PUFF 2 PUFF INHALATION (09:23)
[2023-04-13] MEDS: ASPIRIN 81 MG ENTERIC TABLET PO (09:46)
[2023-04-13] MEDS: ENOXAPARIN 40 MG/0.4 ML SYRINGE SUB-Q (09:47)
[2023-04-13] MEDS: PANTOPRAZOLE 40 MG TABLET PO (09:48)
[2023-04-13] MEDS: levoFLOXacin 750 MG TABLET PO (09:48)
[2023-04-13] MEDS: METOPROLOL SUCCINATE EXT REL 100 MG TABCR PO (09:48)
[2023-04-13 11:59] LABS: Glucose Point of Care 130 mg/dl (65-105)
--- NOTE | 2023-04-13 12:43 | PM.DS ---
DS: Admitting Diagnosis Discharge Date 04/13/23 Admitting Diagnosis diarrhea DS: Discharge Diagnosis Discharge Diagnosis (1) Salmonella enteritis: Code(s): A02.0 - Salmonella enteritis Status: Acute (2) Urinary tract infection: Code(s): N39.0 - Urinary tract infection, site not specified Status: Acute (3) Acute dehydration: Code(s): E86.0 - Dehydration Status: Resolved (4) Sinus tachycardia: Code(s): R00.0 - Tachycardia, unspecified Status: Resolved (5) Type 2 diabetes mellitus with hyperglycemia, without long-term current use of insulin: Code(s): E11.65 - Type 2 diabetes mellitus with hyperglycemia Status: Acute (6) Sepsis with acute hypoxic respiratory failure: Qualifiers: Sepsis type: sepsis due to unspecified organism Severe sepsis shock status: without septic shock Qualified Code(s): A41.9 - Sepsis, unspecified organism; R65.20 - Severe sepsis without septic shock; J96.01 - Acute respiratory failure with hypoxia Code(s): A41.9 - Sepsis, unspecified organism; R65.20 - Severe sepsis without septic shock; J96.01 - Acute respiratory failure with hypoxia Status: Resolved (7) Hepatic steatosis: Code(s): K76.0 - Fatty (change of) liver, not elsewhere classified Status: Acute DS: Summary Hospital Course Hospital Course: This is a 72-year-old past medical history of COPD, diabetes, hyperlipidemia, hypertension and current everyday smoker that presented to the ED due to nausea, vomiting and diarrhea. Patient had her symptoms for approximately 3 days prior to ED presentation. She did not have any recent antibiotic exposure or travel. She did not have any coffee-ground emesis, melena or hematochezia. She is extremely weak and fatigued. She did require oxygen supplementation of 4 L on presentation. Patient presented with symptoms of sepsis. Patient was tested for C diff and stool cultures were also drawn. CT diff was negative and stool cultures eventually came back positive for Salmonella. Urine culture came back positive for Salmonella and Klebsiella. Suspect that urine was contaminated with fecal matter. Patient was not on antibiotics until urine culture came back positive. After patient was started on antibiotics she began feeling better and diarrhea started to slow down. Patient did not have as much frequency and urgency. Discussed with patient the need for cleanliness such as washing hands and washing food before eating. She verbalized her understanding. Patient was unable to come off her oxygen during hospital stay. It is likely that patient required oxygen for some time now due to her years of tobacco abuse. Patient's daughter stated that she gets winded very easily and cannot walk long distances without becoming short of breath. Home O2 evaluation performed. Labs and vital signs are stable and she is medically cleared for discharge at this time. Time Spent with Patient Time attestation: Total time spent providing and/or coordinating discharge services: Exam Narrative: GENERAL: Comfortable, no acute distress HENMT: moist mucous membranes EYES: EOM intact b/l NECK: no lymphadenopathy RESPIRATORY: clear to auscultation CARDIO: RRR GI: soft, nontender, bowel sounds present SKIN: no rashes EXTREMITIES: no edema, redness or tenderness DS: Data Data Completed and Pending Labs on day of discharge: Labs from last 24 hours 04/13/23 04/13/23 04/13/23 11:46 08:14 05:35 WBC 6.2 RBC 5.57 H Hgb 14.2 Hct 45.2 MCV 81.1 MCH 25.5 L MCHC 31.4 L RDW 21.9 H Plt Count 243 MPV 10.4 Sodium 135 L Potassium 3.5 Chloride 108 H Carbon Dioxide 23 Anion Gap 4 L BUN 10 Creatinine 0.50 L Estim Creat Clear Calc 96 Estimated GFR > 60 Glucose 102 POC Capillary Glucose 130 H 104 Calcium 8.4 04/12/23 04/12/23 20:30 16:27 WBC RBC Hgb
--- NOTE | 2023-04-13 13:59 | HOMEO2EVAL ---
Evaluation was performed at [facility] Home Oxygen Evaluation RC: Home Oxygen (O2) Evaluation Start: 04/13/23 12:48 Freq: ONCE Status: Active Protocol: RPE Activity Type Activity Date Activity User E-sign Co-sign Detail Recorded Client Recorded Date Recorded By Document 04/13/23 13:00 DJO [email or web address] 04/13/23 13:59 DJO Document 04/13/23 13:05 DJO [email or web address] 04/13/23 13:59 DJO Document 04/13/23 13:10 DJO [email or web address] 04/13/23 13:59 DJO Document 04/13/23 13:15 DJO [email or web address] 04/13/23 13:59 DJO Document 04/13/23 13:20 DJO [email or web address] 04/13/23 13:59 DJO Document 04/13/23 13:35 DJO [email or web address] 04/13/23 13:59 DJO 04/13/23 04/13/23 04/13/23 13:00 13:05 13:10 Home O2 Evaluation [Oxygen] -Test Phase Resting Resting Exercise -Oxygen Delivery Room Air Nasal Cannula Nasal Cannula -Oxygen Flow Rate (L/min) 1 1 [Pulse Oximetry] -Pulse Oximetry (90-100 %) 87 L 90 87 L [Pulse Rate] -Pulse Rate (60-100 beats/min) 88 85 99 [Evaluation] -Activity Tolerance [Charges] -Treatment Charges O2 Evaluation - Inpatient 04/13/23 04/13/23 04/13/23 13:15 13:20 13:35 Home O2 Evaluation [Oxygen] -Test Phase Exercise Exercise Resting -Oxygen Delivery Nasal Cannula Nasal Cannula Nasal Cannula -Oxygen Flow Rate (L/min) 2 3 1 [Pulse Oximetry] -Pulse Oximetry (90-100 %) 88 L 91 91 [Pulse Rate] -Pulse Rate (60-100 beats/min) 104 H 104 H 84 [Evaluation] -Activity Tolerance Good [Charges] -Treatment Charges
== END 2023-04-13 14:34 | disposition home or self-care (01) | DRG 871 ==
LOC: ANHED 04-10 05:14 → ANH2MED 04-10 05:54
PROVIDERS: Student in an Organized Health Care Education/Training Program; Admitting Provider Internal Medicine; Emergency Provider Emergency Medicine; PCP Family Medicine; Visit Provider Internal Medicine Critical Care Medicine
DX: A41.9 Sepsis, unspecified organism (principal); J96.01 Acute respiratory failure with hypoxia; N39.0 Urinary tract infection, site not specified; A02.0 Salmonella enteritis; R65.20 Severe sepsis without septic shock; B96.1 Klebsiella pneumoniae [K. pneumoniae] as the cause of diseases classified elsewhere; B96.89 Other specified bacterial agents as the cause of diseases classified elsewhere; K76.0 Fatty (change of) liver, not elsewhere classified; R00.0 Tachycardia, unspecified; E11.65 Type 2 diabetes mellitus with hyperglycemia; J44.9 Chronic obstructive pulmonary disease, unspecified; E86.0 Dehydration; D75.1 Secondary polycythemia; E78.5 Hyperlipidemia, unspecified; Z20.822 Contact with and (suspected) exposure to COVID-19; K21.9 Gastro-esophageal reflux disease without esophagitis; G47.30 Sleep apnea, unspecified; F17.210 Nicotine dependence, cigarettes, uncomplicated; E66.9 Obesity, unspecified; Z68.31 Body mass index [BMI] 31.0-31.9, adult; Z79.84 Long term (current) use of oral hypoglycemic drugs
CPT/HCPCS: 36415; 71045; 74177; 80048; 80053; 81001; 82948; 83605; 84145; 84484; 85025; 85027; 85055; 86140; 87040; 87045; 87077; 87086; 87186; 87269; 87272; 87427; 87449; 87493; 87635; 93005; 93306; 94618; 94640; 96361; 96365; 96366; 96372; 96374; 96375; 99285; A9270; G0378; J0696; J1650; J2405; J7030; Q9967

== ENCOUNTER 2023-05-28 08:49 | Outpatient (CLI) | payer MEDICARE, SELFPAY ==
--- NOTE | ~2023-05-28 | CT_ITS ---
EXAMINATION:CT diagnostic chest wo con DATE: 05/28/2023 09:55 INDICATION: Intermittent shortness of breath. Chronic obstructive pulmonary disease. TECHNIQUE: Computed tomography (CT) of the chest was performed without intravenous contrast. Automate d exposure control and iterative reconstruction technique were employed. The dose-length product (DLP ) was 558.42 mGy-cm. COMPARISON: CT abdomen and pelvis 04/10/2023 FINDINGS: There is mild emphysema. There is mild atelectasis bilaterally. There are scattered pulmona ry nodules measuring up to 4 mm. No pleural effusion. There is a multinodular goiter extending into t he superior mediastinum. Cardiomegaly is noted. No pericardial effusion. Aortic atherosclerosis is no thania. There are masses in left adrenal gland measuring up to 12 mm. There is mild thoracic spondylosis . IMPRESSION: 1. Small pulmonary nodules, likely benign. 2. Mild emphysema. 3. Small masses in left adrenal gland. In the absence of known malignancy, these findings are likely adenomas. Reviewed, dictated and finalized at location E. IMPRESSION: 1. Small pulmonary nodules, likely benign. 2. Mild emphysema. 3. Small masses in left adrenal gland. In the absence of known malignancy, thes e findings are likely adenomas.
== END 2023-05-28 08:50 | disposition home or self-care (01) ==
PROVIDERS: PCP Family Medicine; Visit Provider Physician Assistant
DX: J44.9 Chronic obstructive pulmonary disease, unspecified (principal); J81.1 Chronic pulmonary edema; J96.91 Respiratory failure, unspecified with hypoxia; J43.9 Emphysema, unspecified; R91.8 Other nonspecific abnormal finding of lung field; D35.02 Benign neoplasm of left adrenal gland
CPT/HCPCS: 71250

== ENCOUNTER 2023-06-04 08:55 | Outpatient (CLI) | payer MEDICARE, SELFPAY ==
[2023-06-04 09:10] VITALS: PULSE 84; O2SAT 94
[2023-06-04 09:25] VITALS: PULSE 92; O2SAT 92
[2023-06-04 09:30] VITALS: PULSE 88; O2SAT 93
--- NOTE | 2023-06-04 09:30 | HOMEO2EVAL ---
Evaluation was performed at [facility] Home Oxygen Evaluation RC: Home Oxygen (O2) Evaluation Start: 06/04/23 09:28 Freq: Status: Active Protocol: RPE Activity Type Activity Date Activity User E-sign Co-sign Detail Recorded Client Recorded Date Recorded By Document 06/04/23 09:10 [facility] [email or web address] 06/04/23 09:30 [facility] Document 06/04/23 09:25 [facility] [email or web address] 06/04/23 09:30 [facility] Document 06/04/23 09:30 [facility] [email or web address] 06/04/23 09:30 [facility] 06/04/23 06/04/23 06/04/23 09:10 09:25 09:30 Home O2 Evaluation [Oxygen] -Test Phase Resting Exercise Resting -Oxygen Delivery Room Air Room Air Room Air [Pulse Oximetry] -Pulse Oximetry (90-100 %) 94 92 93 [Pulse Rate] -Pulse Rate (60-100 beats/min) 84 92 88 [Evaluation] -Activity Tolerance Good Good Good [Charges] -Treatment Charges O2 Evaluation - Outpatient
--- NOTE | 2023-06-04 09:33 | HOMEO2EVAL ---
Evaluation was performed at [facility] Home Oxygen Evaluation RC: Home Oxygen (O2) Evaluation Start: 06/04/23 09:28 Freq: Status: Active Protocol: RPE Activity Type Activity Date Activity User E-sign Co-sign Detail Recorded Client Recorded Date Recorded By Document 06/04/23 09:10 [facility] [email or web address] 06/04/23 09:30 [facility] Document 06/04/23 09:25 [facility] [email or web address] 06/04/23 09:30 [facility] Document 06/04/23 09:30 [facility] [email or web address] 06/04/23 09:30 [facility] 06/04/23 06/04/23 06/04/23 09:10 09:25 09:30 Home O2 Evaluation [Oxygen] -Test Phase Resting Exercise Resting -Oxygen Delivery Room Air Room Air Room Air [Pulse Oximetry] -Pulse Oximetry (90-100 %) 94 92 93 [Pulse Rate] -Pulse Rate (60-100 beats/min) 84 92 88 [Evaluation] -Activity Tolerance Good Good Good [Charges] -Treatment Charges O2 Evaluation - Outpatient
--- NOTE | 2023-06-04 09:39 | PCRCNOTE ---
HOME O2 EVAL COMPLETE. PATIENT DOES NOT REQUIRE HOME O2 AT THIS TIME.
--- NOTE | 2023-06-04 13:25 | WPDPFTINT ---
PFT Procedure Performed PFT Procedure Performed Spirometry with Pre/Post Bronchodilator Plethysmography (Lung Vol) Diffusing Cap (DLCO) Flow Vol Loop PFT Interpretation This is a pulmonary function test with pre and post-bronchodilator spirometry, plethysmography and diffusing capacity. The test was performed and results interpreted in accordance with the 2019 and 2005 ATS/ERS Task Force guidelines respectively using the Global Lung Function Initiative-2012 reference equations. Patient demonstrated good effort and cooperation. Reproducibility criteria were met. The quality of the pre bronchodilator spirometry maneuver was Grade A and post bronchodilator spirometry maneuver was Grade A. Findings: Spirometry: There is decreased maximal expiratory airflow at low lung volumes with concave expiratory flow tracing. The contour the inspiratory flow tracing is normal. The pre bronchodilator FVC is 2.25 L, 71% predicted. The pre bronchodilator FEV1 is 1.41 L, 58% predicted. The pre bronchodilator FEV1: FVC ratio 63%. The post bronchodilator FVC is 2.38 L, representing a 6% increase. The post bronchodilator FEV1 is 1.55 L, representing a 10% increase. The post bronchodilator FEV1: FVC ratio 65%. Plethysmography: The total lung capacity is 3.92 L, 69% predicted. The functional residual capacity is 2.04 L, 62% predicted. The residual volume is 1.67 L, 68% predicted. Diffusing capacity: The diffusing capacity unadjusted for hemoglobin and carboxyhemoglobin is 13.4, 62% predicted. The diffusing capacity adjusted for alveolar volume is 3.34, 82% predicted. Impression: There is a combined obstructive and restrictive ventilatory abnormality. There are no guidelines to assign the severity of obstruction and restriction with a combined abnormality. In my opinion, given the moderately concave expiratory flow tracing, decreased FEV1: FVC ratio and mild restrictive abnormality I would state there is a moderate obstructive abnormality and a mild restrictive abnormality resulting in a moderately severe decrease in the FEV1. There is no significant improvement after inhaling a single dose of albuterol. The diffusing capacity unadjusted for hemoglobin and carboxyhemoglobin is mildly decreased and normalizes when adjusted for alveolar volume.
== END 2023-06-04 08:56 | disposition home or self-care (01) ==
LOC: ANHPFT 08:56
PROVIDERS: PCP Family Medicine; Visit Provider Physician Assistant
DX: J44.9 Chronic obstructive pulmonary disease, unspecified (principal); R94.2 Abnormal results of pulmonary function studies
CPT/HCPCS: 94060; 94618; 94726; 94729

== ENCOUNTER 2023-11-05 13:50 | Outpatient (CLI) | payer MEDICARE, SELFPAY ==
--- NOTE | ~2023-11-05 | XR_ITS ---
EXAM: XR humerus LT DATE: 11/05/2023 14:32 HISTORY: S49.90XA - Unspecified injury of shoulder and upper arm, ... . COMPARISON: None available. FINDINGS: Decreased mineralization. No fracture or dislocation. No lytic or blastic lesion. Mild deg enerative at the AC joint, glenohumeral joint, and elbow. No erosion or periosteal change. Soft tissu es within normal limits. IMPRESSION: No acute osseous finding in the left humerus. Reviewed, dictated and finalized at location K.
--- NOTE | ~2023-11-05 | XR_ITS ---
EXAM: XR wrist LT min 3V DATE: 11/05/2023 14:32 HISTORY: S49.90XA - Unspecified injury of shoulder and upper arm, ... . COMPARISON: None available. FINDINGS: Decreased mineralization. No fracture or dislocation. No lytic or blastic lesion. Moderate degenerative change at the first CMC joint and triscaphe joint. Mild degenerative change at the radi ocarpal joint. No erosion or periosteal change. Soft tissues within normal limits. IMPRESSION: No acute osseous finding in the left wrist. Reviewed, dictated and finalized at location K.
--- NOTE | ~2023-11-05 | XR_ITS ---
EXAM: XR shoulder LT min 2V DATE: 11/05/2023 14:32 HISTORY: S49.90XA - Unspecified injury of shoulder and upper arm, ... . COMPARISON: None available. FINDINGS: Decreased mineralization. No fracture or dislocation. No lytic or blastic lesion. Mild deg enerative change at the AC joint and glenohumeral joint. No erosion or periosteal change. Soft tissue s within normal limits. IMPRESSION: No acute osseous finding in the left shoulder. Reviewed, dictated and finalized at location K.
== END 2023-11-05 13:51 ==
PROVIDERS: PCP Family Medicine; Visit Provider Physician Assistant
DX: S49.90XA Unspecified injury of shoulder and upper arm, unspecified arm, initial encounter (principal); X58.XXXA Exposure to other specified factors, initial encounter
CPT/HCPCS: 73030; 73060; 73110

== ENCOUNTER 2023-11-07 11:01 | Outpatient (CLI) | payer MEDICARE, SELFPAY ==
--- NOTE | 2023-11-07 11:40 | ECG_ITS ---
Measurements Intervals [place] Rate: 79 P: 59 CA: 147 QRS: 15 QRSD: 91 T: 50 QT: 388 QTc: 422 Interpretive Statements SINUS RHYTHM LOW QRS VOLTAGE IN PRECORDIAL LEADS [QRS DEFLECTION < 1.0 Mv IN CHEST LEADS] ABNORMAL ECG SEE SCANNED COPY FOR SIGNATURE MTDD
== END 2023-11-07 11:02 | disposition home or self-care (01) ==
PROVIDERS: PCP Family Medicine; Visit Provider Physician Assistant Medical
DX: R07.9 Chest pain, unspecified (principal); R94.31 Abnormal electrocardiogram [ECG] [EKG]
CPT/HCPCS: 93005

== ENCOUNTER 2023-11-12 08:23 | Outpatient (CLI) | payer MEDICARE, SELFPAY ==
--- NOTE | ~2023-11-12 | DEXA_ITS ---
Bone Density Report Name: RUSSEL DODSON Age: 72 Sex: Female Ethnicity: White Date of : 1950 Indication: postmenopausal; screening for osteoporosis; height loss; Referring Provider: EDISON CAIN Study: Bone densitometry was performed. Exam Date: November 12, 2023 Accession number: [id number] Bone Density: Region BMD T-score Z-score Classification AP Spine(L1-L4) 1.034 -0.1 2.2 Normal Femoral Neck (Left) 0.589 -2.3 -0.3 Osteopenia Total Hip (Left) 0.946 0.0 1.8 Normal Femoral Neck (Right) 0.751 -0.9 1.1 Normal Total Hip (Right) 0.958 0.1 1.9 Normal Total Hip Mean 0.952 0.1 1.9 Normal World Health Organization criteria for BMD impression classify patients as: Normal (T-score at or above -1.0), Osteopenia (T-score between -1.0 and -2.5), or Osteoporosis (T-score at or below -2.5). 10-year Fracture Risk(1): Major Osteoporotic Fracture 14% Hip Fracture 5.2% Reported Risk Factors: [place] (), Neck BMD=0.589, BMI=38.7, smoking (1) FRAX(R) Version 3.08. Fracture probability calculated for an untreated patient. Fracture probability may be lower if the patient has received treatment. Clinical Information Provided by Patient: Smokes Has used the following medications: multivitamin Patient maximum height was 67 No regular weight bearing exercise Drinks caffeinated beverages Onset of menses at age 14 Number of children 2 Impression: The patient has low bone mass, based on the Left Femoral Neck T-score. The patient has an estimated ten-year risk of hip fracture of 5.2% and an estimated ten-year risk of major fracture of 14%, based on the WHO FRAX algorithm. The patient has risk factors, including: smoking. Discussion: BONE DENSITY IS LOW AT ONE OR MORE SKELETAL SITES. THE PATIENT'S BMD AND CLINICAL RISK FACTORS CONTRIBUTE TO THIS PATIENT'S INCREASED RISK OF FRACTURE. This patient's lowest T-score is low at one or more skeletal sites. It meets the World Health Organization's (WHO) criteria for ?low bone mass? (T-score between -1.0 and -2.5). The patient's 10-year risk of hip fracture as calculated by FRAX exceeds the threshold where pharmacological therapy is recommended by the National Osteoporosis Foundation (NOF). However, all treatment decisions require clinical judgment and consideration of individual patient factors, including patient preferences, comorbidities, previous drug use, risk factors not captured in the FRAX model (e.g., frailty, falls, vitamin D deficiency, increased bone turnover, interval significant decline in bone density) and possible under or overestimation of fracture risk by FRAX. The patient should follow a healthful lifestyle (good nutrition with adequate calcium and vitamin D, and appropriate weight-bearing exercise). Follow-Up:
== END 2023-11-12 08:24 | disposition home or self-care (01) ==
LOC: ANHIMG 08:24
PROVIDERS: PCP Family Medicine; Visit Provider Physician Assistant Medical
DX: M81.8 Other osteoporosis without current pathological fracture (principal); N95.1 Menopausal and female climacteric states; M85.852 Other specified disorders of bone density and structure, left thigh
CPT/HCPCS: 77080

== ENCOUNTER 2023-12-06 09:29 | Outpatient (CLI) | payer MEDICARE, SELFPAY ==
--- NOTE | ~2023-12-06 | NM_ITS ---
EXAMINATION: NM aretha stress w perfusion DATE: 12/06/2023 11:33 INDICATION: Chest pain. TECHNIQUE: Rest images were obtained following intravenous administration of 9.8 mCi Tc99m tetrofosmi n (Myoview). The patient was infused intravenously with Lexiscan (regadenoson). Then, 30.8 mCi Tc99m tetrofosmin (Myoview) was administered intravenously, and supine and prone stress images were obtaine d. Data was reconstructed into short axis and horizontal and vertical long axis SPECT images. Gated S PECT images were also obtained. COMPARISON: Chest CT 05/28/2023 FINDINGS: There is a small, mild, fixed perfusion defect involving mid anterior wall of left ventricl e that demonstrates subendocardial fat on the prior CT, consistent with old infarct. There is no segm ental wall motion abnormality. Left ventricular ejection fraction measures >70%. IMPRESSION: 1. 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 2. Normal left ventricular ejection fraction measuring >70%. Reviewed, dictated and finalized at location A.
--- NOTE | 2023-12-06 09:50 | EST_ITS ---
Patient Info Name: Naya Lopez Age: 73 years : 1950 Gender: Female Ht: 67 in Wt: 230 lbs BSA: 2.26 m2 HR: 84 bpm BP: 135 / 82 mmHg Heart Rhythm: Sinus Rhythm Exam Date: 12/06/2023 10:25 AM Exam Location: Echo Lab Patient Status: Outpatient Admit Date: 12/06/2023 Staff Ordering Physician: Ada Loyola PA-C Attending Provider: Ada Loyola PA-C Exercise Technologist: Yoon Nava CT Exercise Physician: Lawrence Woodward DO Exam Type: CA stress aretha w NM Study Info Indications R07.89 - Other chest pain A regadenoson stress test was performed. Summary 1. 1. Negative lexiscan stress test for ischemic ST changes by ECG criteria. 2. 2. Stable hemodynamics throughout the test. 3. 3. Nuclear scan to follow and will be reported separately. Please correlate with it. 4. 4. Patient informed of the above results. Protocol: Lexiscan Stress ECG Details Stage: REST Duration (min): 1 min : 4 sec HR (bpm): 84 SBP (mmHg): 135 DBP (mmHg): 82 Stage: REST Duration (min): 15 min : 19 sec HR (bpm): 89 SBP (mmHg): 135 DBP (mmHg): 82 Stage: STAGE 1 Duration (min): 1 min : 0 sec HR (bpm): 95 SBP (mmHg): 161 DBP (mmHg): 88 Stage: RECOVERY Duration (min): 1 min : 0 sec HR (bpm): 98 SBP (mmHg): 161 DBP (mmHg): 88 Stage: RECOVERY Duration (min): 2 min : 0 sec HR (bpm): 97 SBP (mmHg): 161 DBP (mmHg): 88 Stage: RECOVERY Duration (min): 3 min : 0 sec HR (bpm): 95 SBP (mmHg): 172 DBP (mmHg): 77 Stage: RECOVERY Duration (min): 3 min : 22 sec HR (bpm): 96 SBP (mmHg): 172 DBP (mmHg): 77 Rest HR: 89 bpm Peak HR: 98 bpm Rest Sys BP: 135 mmHg Peak Sys BP: 172 mmHg Max Pred HR: 146 bpm % Max Pred HR: 67 % Target HR: 124 bpm Max RPP: 16,856 bpm*mmHg Termination Reason: Completed protocol Cardiac Symptoms: Shortness of breath Total Time: 1 min : 0 sec Rest Valencia BP: 82 mmHg Peak [place] BP: 77 mmHg Total Dose: 0.4 mg Resting ECG Sinus rhythm. Stress ECG No ST changes. Arrhythmias None. Report Signatures
== END 2023-12-06 09:30 | disposition home or self-care (01) ==
LOC: ANHCARD 09:33
PROVIDERS: PCP Family Medicine; Visit Provider Physician Assistant Medical
DX: R07.9 Chest pain, unspecified (principal)
CPT/HCPCS: 78452; 93017; A9502; J2785

== ENCOUNTER 2024-02-21 07:58 | Outpatient (CLI) | payer MEDICARE, SELFPAY ==
[2024-02-21 09:10] LABS: Alanine Aminotransferase 33 U/L (6-35); Albumin Level 4.4 g/dL (3.5-5.1); Alkaline Phosphatase 74 U/L (38-126); Anion Gap 7 mmol/L (4-12); Aspartate Amino Transferase 34 U/L (14-36); Bilirubin,Total 0.6 mg/dL (0.2-1.3); Blood Urea Nitrogen 9 mg/dL (7-17); Calcium 9.6 mg/dL (8.4-10.2); Carbon Dioxide 32 mmol/L (22-30); Chloride 98 mmol/L (98-107); Cholesterol 139 mg/dL (0-200); Estimated Glomerular Filt Rate > 60; Glucose 134 mg/dL (65-110); HDL Direct 36 mg/dL; Sodium 137 mmol/L (137-145); Triglycerides 181 mg/dL (<150)
[2024-02-21 09:24] LABS: LDL Cholesterol Direct 74 mg/dL
[2024-02-21 10:32] LABS: Hemoglobin A1C 7.3 % (<5.7)
== END 2024-02-21 07:59 | disposition home or self-care (01) ==
LOC: ANHLAB 08:01
PROVIDERS: PCP Family Medicine; Visit Provider Family Medicine
DX: E78.2 Mixed hyperlipidemia (principal); E11.9 Type 2 diabetes mellitus without complications
CPT/HCPCS: 36415; 80053; 80061; 83036

== ENCOUNTER 2024-04-07 10:41 | Emergency (ER) | payer MEDICARE, SELFPAY ==
--- NOTE | ~2024-04-07 | XR_ITS ---
EXAMINATION: XR chest 2V DATE: 04/07/2024 11:02 INDICATION: Cough, congestion and hypoxia TECHNIQUE: frontal and lateral views of the chest were obtained. COMPARISON: Chest radiograph dated 04/10/[address] dated 05/28/2023 FINDINGS: Again seen is pulmonary vascular congestion without tal pulmonary edema. Prominent left paracardial fat pad. No other airspace opacities, pulmonary edema, pleural effusion or pneumothorax. Heart size is normal. Moderate thoracic spondylosis. IMPRESSION: 1. Pulmonary vascular congestion without tal pulmonary edema or other acute cardiopulmonary disease . Reviewed, dictated and finalized at location B. IMPRESSION: 1. Pulmonary vascular congestion without tal pulmonary edema or other acute c ardiopulmonary disease.
--- NOTE | 2024-04-07 10:43 | ED.URI ---
HPI - URI/Sore Throat General Chief Complaint: Upper Respiratory Infection Stated Complaint: Sore Throat/Cough Time Seen by Provider: 04/07/24 10:42 Source: patient and family Mode of arrival: ambulatory Limitations: no limitations History of Present Illness HPI Narrative: Naya is a 73-year-old female patient presenting to the clinic today with complaints of sore throat, sinus congestion and pressure, chest congestion, and productive cough with yellow phlegm x3 days. She reports no known fever, chills, or body aches. Does feel mildly shortness of breath. History of COPD. Is a current smoker. States that her is having open heart surgery on Sunday and she wants to be well before then. MD elicited complaint: cough, sore throat, rhinorrhea, nasal congestion and sinus pain Related Data Home Medications Medication Instructions Recorded Confirmed Adult Multivitamin with Iron 1 tablet PO DAILY 04/10/23 04/07/24 albuterol sulfate 90 mcg/actuation 1 puff inhalation Q4H PRN Wheezing 08/30/23 04/07/24 aerosol inhaler aspirin 81 mg tablet,delayed 81 mg PO DAILY 08/30/23 04/07/24 release fluticasone propionate 50 1 spray intranasal DAILY 08/30/23 04/07/24 mcg/actuation nasal spray,suspension Allergies Allergy/AdvReac Type Severity Reaction Status Date / Time No Known Allergies Allergy Verified 04/07/24 10:49 Review of Systems Review of Systems: Pertinent positives per HPI. Patient denies any fever, chills, rash, headache, visual changes, dizziness, chest pain, palpitations, nausea, vomiting, diarrhea, constipation, abdominal pain, or any urinary issues. [facility] Past Medical History Medical History Anxiety Elevated cholesterol GERD (gastroesophageal reflux disease) Hypertension Obesity Sleep apnea Surgical History Surgical History History of tubal ligation Family History Family History Father Acute myocardial infarction, Onset Age: 39 Mother Diabetes mellitus Thyroid disease Cerebrovascular accident Hypertension Sibling Cancer Diabetes mellitus Hypertension Depression Anxiety Heart disease Cerebrovascular accident Social History Social History (Reviewed 04/07/24 @ 10:43 by YELENA Sanchez Social History: The patient lives with her of 53 years. She has smoked at least 1.5 packs of cigarettes per day since she was a teenager. She does not drink significant amount of alcohol. She denies illicit substance use. 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 She raised 2 daughters who are both healthy. Code status: Full code Smoking packs per day: 0.75 Smoking cigarettes per day: 15.0 Years smoked: 50 Smoking pack-years: 37.50 Smoking status: Current every day smoker Alcohol intake: current Substance use: never Substance use type: does not use Lack of Transportation: No Lack of Food: Never True Current Housing: I Have Housing Concerned About Future Housing: No Difficulty Paying Gas/Electric Bills: No Difficulty Paying for Meds: No Currently Unemployed: No Education: High School Diploma/GED Difficulty w/ Childcare or Family Care: No Living arrangements: with family Gender identity (if verbalized by the patient): Female Spiritual care concerns: No Comments At the time of my signature, I reviewed and agree with the nursing past medical, surgical, social, and family history. There is no relevant family history pertinent to the patient complaint. Exam Narrative: General: Well-developed, obese, in no apparent distress Head: Normocephalic, atraumatic Eyes: Pupils equally round and reactive to light bilaterally, EOM intact, sclera and conjunctive clear, no discharge, lids normal Ears: TMs intact and clear, ear canals cl
[2024-04-07 10:45] VITALS: BP 129/70; PULSE 75; RESP 20; TEMP 36.6; O2SAT 90
[2024-04-07 11:16] LABS: EDSTREPNEGPOS1 Negative (Negative)
[2024-04-07 11:17] LABS: EDINFLUASCREEN Negative (Negative); EDINFLUBSCREEN Negative (Negative)
== END 2024-04-07 11:19 | disposition home or self-care (01) ==
PROVIDERS: Emergency Provider Nurse Practitioner Family; PCP Family Medicine
DX: J44.1 Chronic obstructive pulmonary disease with (acute) exacerbation (principal); J02.9 Acute pharyngitis, unspecified; J06.9 Acute upper respiratory infection, unspecified; Z20.822 Contact with and (suspected) exposure to COVID-19; F17.210 Nicotine dependence, cigarettes, uncomplicated; E78.00 Pure hypercholesterolemia, unspecified; K21.9 Gastro-esophageal reflux disease without esophagitis; I10 Essential (primary) hypertension; E66.9 Obesity, unspecified; Z68.35 Body mass index [BMI] 35.0-35.9, adult; Z79.82 Long term (current) use of aspirin
CPT/HCPCS: 71046; 87081; 87426; 87804; 87880; 99213; G0463

== ENCOUNTER 2024-04-11 10:46 | Emergency (ER) | payer MEDICARE, SELFPAY ==
--- NOTE | ~2024-04-11 | XR_ITS ---
EXAMINATION: XR chest 2V DATE: 04/11/2024 11:12 INDICATION: Worsening cough and shortness of breath TECHNIQUE: frontal and lateral views of the chest were obtained. COMPARISON: Chest radiograph dated 04/07/2024 FINDINGS: The lungs are clear with no focal airspace opacities, pulmonary edema, pleural effusion or pneumothor ax. Heart size is normal with prominent left paracardial fat pad. Moderate thoracic spondylosis. IMPRESSION: 1. No acute cardiopulmonary disease. Reviewed, dictated and finalized at location B.
[2024-04-11 10:53] VITALS: BP 119/76; PULSE 70; RESP 16; TEMP 36.4; O2SAT 93
[2024-04-11 10:55] VITALS: O2SAT 93
--- NOTE | 2024-04-11 11:03 | ED.SOB ---
HPI - SOB/Dyspnea General Chief Complaint: Upper Respiratory Infection Stated Complaint: CONGESTION/SOB/LOW OXYGEN Time Seen by Provider: 04/11/24 11:05 Source: patient Mode of arrival: ambulatory Limitations: no limitations History of Present Illness HPI Narrative: Naya is a 73-year-old female patient presenting to the clinic today with complaints of congestion, shortness of breath, and low O2 sats. She was seen on Sunday by myself with similar symptoms and I treated her for a COPD exacerbation at that time. I placed her on around of prednisone and doxycycline. She reports yesterday she was so winded coming down the stairs in her oxygen saturations were 86% on room air. She does take albuterol and budesonide inhalers. States her symptoms have improved since yesterday her oxygen saturations 93% on room air currently. States she feels very congested and having shortness of breath still. She has a history of COPD and she still is smoking 3/4 packs per day. COVID, influenza, and strep test were all performed on Sunday and were all negative. States that she still has a productive cough with some white yellow phlegm. Related Data Home Medications Medication Instructions Recorded Confirmed Adult Multivitamin with Iron 1 tablet PO DAILY 04/10/23 04/07/24 albuterol sulfate 90 mcg/actuation 1 puff inhalation Q4H PRN Wheezing 08/30/23 04/07/24 aerosol inhaler aspirin 81 mg tablet,delayed 81 mg PO DAILY 08/30/23 04/07/24 release fluticasone propionate 50 1 spray intranasal DAILY 08/30/23 04/07/24 mcg/actuation nasal spray,suspension Allergies Allergy/AdvReac Type Severity Reaction Status Date / Time No Known Allergies Allergy Verified 04/07/24 10:49 Review of Systems Review of Systems: Pertinent positives per HPI. Patient denies any fever, chills, rash, headache, visual changes, dizziness, chest pain, palpitations, nausea, vomiting, diarrhea, constipation, abdominal pain, or any urinary issues. [facility] Past Medical History Medical History Anxiety Elevated cholesterol GERD (gastroesophageal reflux disease) Hypertension Obesity Sleep apnea Surgical History Surgical History History of tubal ligation Family History Family History Father Acute myocardial infarction, Onset Age: 39 Mother Diabetes mellitus Thyroid disease Cerebrovascular accident Hypertension Sibling Cancer Diabetes mellitus Hypertension Depression Anxiety Heart disease Cerebrovascular accident Social History Social History Social History: The patient lives with her of 53 years. She has smoked at least 1.5 packs of cigarettes per day since she was a teenager. She does not drink significant amount of alcohol. She denies illicit substance use. 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 Code status: Full code Smoking packs per day: 0.75 Smoking cigarettes per day: 15.0 Years smoked: 50 Smoking pack-years: 37.50 Smoking status: Current every day smoker Alcohol intake: current Substance use: never Substance use type: does not use Lack of Transportation: No Lack of Food: Never True Current Housing: I Have Housing Concerned About Future Housing: No Difficulty Paying Gas/Electric Bills: No Difficulty Paying for Meds: No Currently Unemployed: No Education: High School Diploma/GED Difficulty w/ Childcare or Family Care: No Living arrangements: with family Gender identity (if verbalized by the patient): Female Spiritual care concerns: No Comments At the time of my signature, I reviewed and agree with the nursing past medical, surgical, social, and family history. There is no relev
== END 2024-04-11 11:36 | disposition home or self-care (01) ==
PROVIDERS: Emergency Provider Nurse Practitioner Family; PCP Family Medicine
DX: J44.1 Chronic obstructive pulmonary disease with (acute) exacerbation (principal); F17.210 Nicotine dependence, cigarettes, uncomplicated; E78.00 Pure hypercholesterolemia, unspecified; K21.9 Gastro-esophageal reflux disease without esophagitis; I10 Essential (primary) hypertension; E66.9 Obesity, unspecified; Z68.34 Body mass index [BMI] 34.0-34.9, adult; Z79.82 Long term (current) use of aspirin
CPT/HCPCS: 71046; 99213; G0463

== ENCOUNTER 2024-05-28 11:41 | Outpatient (CLI) | payer MEDICARE, SELFPAY ==
--- NOTE | ~2024-05-28 | XR_ITS ---
Clinical Indication: Shortness of breath PA and lateral views of the chest: Comparison: 04/11/2024 Findings: The lungs are clear, without evidence of focal consolidation or pleural effusion. Cardiome diastinal silhouette is stable. Bones and soft tissues are unremarkable. Impression: Clear lungs. Reviewed, dictated and finalized at location . Impression: Clear lungs.
[2024-05-28 12:58] LABS: Alanine Aminotransferase 36 U/L (6-35); Albumin Level 4.4 g/dL (3.5-5.1); Alkaline Phosphatase 69 U/L (38-126); Anion Gap 9 mmol/L (4-12); Aspartate Amino Transferase 30 U/L (14-36); Bilirubin,Total 0.7 mg/dL (0.2-1.3); Blood Urea Nitrogen 14 mg/dL (7-17); Calcium 9.5 mg/dL (8.4-10.2); Carbon Dioxide 29 mmol/L (22-30); Chloride 98 mmol/L (98-107); Estimated Glomerular Filt Rate > 60; Glucose 198 mg/dL (65-110); Potassium 3.9 mmol/L (3.4-5.0); Sodium 136 mmol/L (137-145)
== END 2024-05-28 11:42 | disposition home or self-care (01) ==
LOC: ANHIMG 11:44
PROVIDERS: PCP Family Medicine; Visit Provider Family Medicine
DX: E11.9 Type 2 diabetes mellitus without complications (principal); J44.9 Chronic obstructive pulmonary disease, unspecified; R05.9 Cough, unspecified; R06.09 Other forms of dyspnea
CPT/HCPCS: 36415; 71046; 80053; 83036

== ENCOUNTER 2024-08-01 10:08 | Outpatient (CLI) | payer MEDICARE, SELFPAY ==
--- NOTE | ~2024-08-01 | CT_ITS ---
EXAMINATION: CT lung screening DATE: 08/01/2024 10:24 INDICATION: Z87.891 - Personal history of nicotine dependence TECHNIQUE: Computed tomography (CT) of the chest was performed without intravenous contrast. Addition al 3D reconstructions utilizing coronal maximum intensity projection (MIP) were performed. Automated exposure control and iterative reconstruction technique were employed. The dose-length product was 28 1.31 mGy-cm. COMPARISON: 05/28/2023 FINDINGS: Goiter with intrathoracic extension. Mild emphysema. Anesthetic atelectasis/scarring at the lingula a nd right middle lobe. Again seen are few residual scattered less than 3 mm nodules in both lungs. Man y of the nodules previously seen in the right upper lobe have resolved. No pneumonia, pulmonary edema , pleural effusion or pneumothorax. Heart size is normal. Atherosclerotic coronary artery calcificati ons. No pericardial effusion. Thoracic aorta is normal in caliber. No pathologically enlarged abdomin al or pelvic lymphadenopathy. Visualized upper abdomen is unremarkable. Mild to moderate thoracic spo ndylosis. IMPRESSION: 1. Lung-RADS category 2: Benign appearance or behavior. Continue annual screening with noncontrast lo w-dose chest CT in 12 months. Reviewed, dictated and finalized at location B. D CARE DIRECTOR IMPRESSION: 1. Lung-RADS category 2: Benign appearance or behavior. Continue annual screeni ng with noncontrast low-dose chest CT in 12 months.
== END 2024-08-01 10:09 | disposition home or self-care (01) ==
LOC: ANHIMG 10:11
PROVIDERS: PCP Family Medicine; Visit Provider Nurse Practitioner Family
DX: Z12.2 Encounter for screening for malignant neoplasm of respiratory organs (principal); Z87.891 Personal history of nicotine dependence
CPT/HCPCS: 71271

== ENCOUNTER 2024-10-01 10:03 | Outpatient (CLI) | payer MEDICARE, SELFPAY ==
--- NOTE | ~2024-10-01 | MM_ITS ---
EXAMINATION: MM screening edmundo BI w wilda HISTORY: Screening mammogram TECHNIQUE: Craniocaudal and mediolateral oblique 3-D tomosynthesis images were obtained and synthetic 2-D images were generated. CAD analysis was submitted and interpreted. COMPARISON: 09/20/2010 BREAST PARENCHYMAL COMPOSITION:Not Dense. The breasts are almost entirely fatty FINDINGS: No suspicious mass, calcification, or architectural distortion are identified in either arsen ast to suggest malignancy. There has been no suspicious interval change. IMPRESSION: No mammographic evidence of malignancy. Recommend routine screening mammography in one year. BI-RADS Category 1: Negative Reviewed, dictated and finalized at location . FIC EXPERT
--- OUTSIDE RECORDS SUMMARY | 2024-10-01 11:05 | XMS_ITS | CONTINUITY OF CARE DOCUMENT ---
Author Name vamshi bonds Address Unknown Organization [facility] Address [address] [place] [address] Phone [phone] Care Team Providers Care Voice Network Engineer Name Role Phone Trace Yeboah MD Unavailable [phone] BUNNY OLIVEROS MD Unavailable [phone] BUNNY OLIVEROS MD Unavailable PROBLEMS Condition Status Date Provider Notes ABNORMAL STRESS NUCLEAR SCAN -09/11 NUC ISCHEMIS EF 67 active ? Yogesh Nicholas RN HTN ESSENTIAL-09/11 ECHO EF 50 active ? Yogesh mitchell RN DIABETES MELLITUS active ? Trace Yeboah MD HYPERALDOSTERONISM active ? Trace Yeboah MD OBESITY active ? Trace Yeboah MD TOBACCO ABUSE active Trace Yeboah MD HYPERCHOLESTEROLEMIA active Trace Yeboah MD ENCOUNTERS Date Type Provider Location Encounter Diag nosis - In-person encounter Office Visit Trace Yeboah MD [facility] - In-person encounter Office Visit Trace Yeboah MD [facility] ABNORMAL STRESS NUCLEAR SCAN-09/11 NUC ISCHEMIS EF 67HTN ESSENTIAL-09/11 ECHO EF 50DIABETES MELLITUSHYPERALDOSTERONISMOBESITYTOBACCO ABUSEHYPERCHOLESTEROLEMIA VITAL SIGNS Date Observation Value Provider Body Mass Index (Ratio) 33.01 kg/m2 Yogesh Nicholas RN blood pressure, diastolic, left arm 95 mm [Hg] Yogesh Nicholas RN blood pressure, systolic, left arm 147 mm [Hg] Yogesh Nicholas RN blood pressure, diastolic, right arm 85 m m[Hg] Yogesh Nicholas RN blood pressure, systolic, right arm 140 m m[Hg] Yogesh Nicholas RN blood pressure, diastolic 95 mm[Hg] Andrew Nicholas RN blood pressure, systolic 147 mm[Hg] Yogesh Nicholas RN pulse rate 97 /min Arben Jimneez oxygen saturation, oximetry 95 % Arben Jimenez respiratory rate E&M 16 /min Arben Jimenez weight E&M 226 [lb_av] Arben Jimenez weight E&M 227 [lb_av] Yogesh Nicholas RN blood pressure, diastolic, left arm 96 mm [Hg] Yogesh Nicholas RN blood pressure, systolic, left arm 156 mm [Hg] Yogesh Nicholas RN blood pressure, diastolic, right arm 96 m m[Hg] Yogesh Nicholas RN blood pressure, systolic, right arm 163 m m[Hg] Yogesh Nicholas RN blood pressure, diastolic 96 mm[Hg] Andrew Nicholas RN blood pressure, systolic 156 mm[Hg] Yogesh Nicholas RN pulse rate 71 /min Yogesh Nicholas RN oxygen saturation, oximetry 93 % Yogesh Nicholas RN respiratory rate E&M 18 /min Yogesh alejo RN height E&M 69.5 [in_i] Yogesh Nicholas RN ALLERGIES No Known Drug Allergies RESULTS Date Observation Value Provider Reference Range Interpretation Location cholesterol, serum 150 mg/dL Zamzam Avilez alanine aminotransferase (SGPT), serum 24 1/L [facility] aspartate aminotransferase (SGOT), serum 24 1/L Zamzam Avilez creatinine, serum 0.64 mg/dL Zamzam Avilez potassium, serum 3.7 mmol/L Zamzam Avilez sodium, serum 143 mmol/L Zamzam Avilez LDL cholesterol, serum 80 mg/dL Zamzam Avilez international normalized ratio (INR) 1.0 Zamzam Avilez platelet count 297 10*3/mm3 Zamzam Avilez hematocrit, blood 52.1 % Zamzam Avilez HISTORY OF MEDICATION USE Medication Status Instructions Dates Provider Indications Com ments METOPROLOL SUCCINATE ER 25 MG ORAL TABLET EXTENDED RELEASE 24 HOUR active one tab. daily Yogesh Nicholas RN BYSTOLIC 10 MG ORAL TABLET completed once daily - Yogesh Nicholas RN ALPRAZOLAM 0.25 MG ORAL TABLET active ONE TAB. DAILY PRN Yogesh Nicholas RN VYTORIN 10-10 MG ORAL TABLET active ONE TAB. AT BEDTIME Yogesh Nicholas RN METFORMIN HCL 500 MG ORAL TABLET active daily Yogesh Nicholas RN HYDROCHLOROTHIAZIDE 12.5 MG ORAL CAPSULE active ONE TAB. DAILY Yogesh Nicholas RN LOSARTAN POTASSIUM 100 MG ORAL TABLET active 1 tab daily Trace Yeboah MD VITAMIN D 3 1000 IU active daily Yogesh castillo RN ASPIRIN 81 MG ORAL TABLET active ONE TAB. DAILY Yogesh Nicholas RN SOCIAL HISTORY Date Observation Value Provider social history E&M Marital Status: Marrie d Yogesh Nicholas RN social history reviewed E&M reviewed Yogesh Nicholas RN smoking history, total pack/year 47 Arben Jimenez smoking history, total pack/year 47 Yogesh Nicholas RN drug use none Trace Yeboah MD passive cigarette smoke exposure yes Yogesh Nicholas RN smoking history, total pack/day 1 Yogesh Nicholas RN smoking, date started 1966 Jul Yovanny mitchell RN caffeine use, averag e drinks per day yes Yogesh Nicholas RN alcohol use, average drinks per day social Yogesh Nicholas RN smoking history, total pack/year 47 Yogesh Nicholas RN cigarette use yes Yogesh Nicholas RN smoking status current every day smoker J coleen Nicholas RN social history reviewed E&M reviewed Yogesh Nicholas RN MENTAL STATUS Date Observation Value Provider assessment of judgme nt and insight E&M Alert and oriented to time, place and person. Mood and affect are normal. Yogesh Nicholas RN assessment of judgme nt and insight E&M Alert and oriented to time, place and person. Mood and affect are normal. Yogesh Nicholas RN INSURANCE PROVIDERS Payer name Policy type / Coverage type [place] [employer] ID [facility] [id number] 1 TREATMENT PLAN Date Name Carotid Duplex Bilat eral Complete Echo Cardiac Cath - Left - CNE HISTORY OF PROCEDURES Procedure Date Procedure Name Provider Procedure Notes S tatus ePrescribe - Check t his box if eRx is used Trace Yeboah MD completed
--- OUTSIDE RECORDS SUMMARY | 2024-10-01 11:05 | XMS_ITS | Continuity of Care Document ---
Author Organization [facility] Address [address] [place] [address] [place] [address] Phone Care Team Providers Care Women Specialist Name Role Phone [facility] Unavailable Unavail able Geremias Cash Unavailable Unavailable Procedures Procedure Date Progressive Lens, Plastic Frames Deluxe Scratch Resistant Coating Eye Exam & Treatment Refraction Eye Exam & Treatment Refraction Advance Directives Directive Yes / No Effective Date File Name No Information Encounters Encounter Description Practice Location Reason(s) For Visit Diagnoses Date Provider Providers Copied on Encounter [facility], [address] [place] [address] [address], [place], [place], [id number], [place] tel:[phone] SEC [facility] No Information 0 [facility] . [address] [facility], [facility] [address], [place], [id number], [place]. tel:[phone] Referring Provider: Frankie Feliciano, [address] [place] [address] [address], [place], [address]. tel:[phone] sulting Provider: Geremias Cash [address] [place] [address], [place], [address]. tel:[phone] [facility], [address] [place] [address] [address], [place], [place], [id number], [place] tel:[phone] [facility] No Information 0 Miranda OD Frankie. [address] [place] [address] , [address], [place], [address], [place]. tel:[phone] Referring Provider: Kelsi Mullen MD, [address], [place], [address]. tel:[phone] [facility] Eye [facility], [address], [place], [place], [id number], [place] tel:[phone] [facility] No Information Dec- 7-200 7 Miranda OD Frankie. [address] [facility] , [address], [place], [address], [place]. tel:[phone] Family History Family Member Type Diagnosis Age At Onset No Information Payers Payer name Insurance type Covered democrat ID Puneet esaprza(s) [employer] Plan CI [id number] Social History Type Description Quantity Date Captured [...]
--- OUTSIDE RECORDS SUMMARY | 2024-10-01 11:05 | XMS_ITS | Patient Health Record ---
Author Organization [facility] Address [address] [place] [address] Care Team Providers Care Clinical Research Management Associate Name Role Phone Avery Duggan Primary Care Provider Reason For Referral No Information Immunizations Vaccine Route Administration Date Status Comme nts COVID-19 Moderna 2nd IM Intramuscular 11/04/2020 Administe red COVID-19 Moderna 1ST IM Intramuscular 10/07/2020 Administe red Plan Of Treatment No Information Insurance Providers Payer Name Payer Address Payer Phone Subscriber Number Group Number Insured Name Patient Relationship to Insured Coverage Start Date Coverage End Date Aetna [address] [place]ERYL HENNING [phone] [id number] Naya Lopez Self - patient is the insured 2016
== END 2024-10-01 10:04 | disposition home or self-care (01) ==
LOC: ANHIMG 10:04
PROVIDERS: PCP Family Medicine; Visit Provider Family Medicine
DX: Z12.31 Encounter for screening mammogram for malignant neoplasm of breast (principal)
CPT/HCPCS: 77063; 77067

== ENCOUNTER 2024-10-29 09:48 | Outpatient (CLI) | payer MEDICARE, SELFPAY ==
--- NOTE | ~2024-10-29 | XR_ITS ---
XR chest 2V 10/29/2024 10:15 Indication: Dyspnea. Cough for 4 months. Procedure: 2 view chest Comparison: Comparison to multiple prior studies sequentially, with oldest reviewed study dated 04/10. Findings: Cardiomegaly. No focal air space disease, pulmonary edema, pleural effusion or suspected pn eumothorax. Impression: 1: No acute cardiopulmonary disease. Reviewed, dictated and finalized at location A. Impression: 1: No acute cardiopulmonary disease.
[2024-10-29 10:20] LABS: Basophils Absolute Auto 0.1 K/mm3 (0.0-0.1); Basophils Percent Auto 0.4 % (0.2-1.2); Eosinophils Absolute Auto 0.2 K/mm3 (0-0.3); Eosinophils Percent Auto 2.1 % (0-4.4); Hemoglobin 13.6 g/dL (12.0-15.0); Immature Granulocyte Absolute 0.05 K/mm3 (0.00-0.031); Immature Granulocyte Percent A 0.4 % (0-0.5); Lymphocytes Absolute Auto 2.38 K/mm3 (0.9-3.2); Lymphocytes Percent Auto 20.4 % (18.3-44.2); Mean Corpuscular HGB Conc 30.2 g/dl (32-36); Mean Corpuscular Hemoglobin 24.3 pg (26-34); Mean Corpuscular Volume 80.4 fl (80-100); Monocytes Absolute Auto 1.2 K/mm3 (0.1-0.6); Monocytes Percent Auto 10.1 % (2.6-8.5); Neutrophils Absolute Auto 7.8 K/mm3 (1.3-6.7); Neutrophils Percent Auto 66.6 % (45.5-73.1); Platelet Count Result 372 k/mm3 (150-375); White Blood Count 11.7 K/mm3 (4.5-10.0)
[2024-10-29 10:39] LABS: NT Pro B Type Natriuretic Pept 116 pg/mL (19.9-100)
--- OUTSIDE RECORDS SUMMARY | 2024-10-29 10:42 | XMS_ITS | CONTINUITY OF CARE DOCUMENT ---
Author Name vamshi bonds Address Unknown Organization [facility] Address [address] [facility] [address] [place] [address] Phone [phone] Care Team Providers Care Pediatric Rn Name Role Phone Trace Yeboah MD Unavailable [phone] BUNNY OLIVEROS MD Unavailable [phone] BUNNY OLIVEROS MD Unavailable [phone] PROBLEMS Condition Status Date Provider Notes ABNORMAL STRESS NUCLEAR SCAN -09/11 NUC ISCHEMIS EF 67 active ? Ygoesh Nicholas RN HTN ESSENTIAL-09/11 ECHO EF 50 active ? Yogesh mitchell RN DIABETES MELLITUS active ? Trace Yeboah MD HYPERALDOSTERONISM active ? Trace Yeboah MD OBESITY active ? Trace Yeboah MD TOBACCO ABUSE active Trace Yeboah MD HYPERCHOLESTEROLEMIA active Trace Yeboah MD ENCOUNTERS Date Type Provider Location Encounter Diag nosis - In-person encounter Office Visit Trace Yeboah MD [facility] - In-person encounter Office Visit Trace Yeboah MD [facility] ABNORMAL STRESS NUCLEAR SCAN-09/11 NUC ISCHEMIS EF 67HTN ESSENTIAL-09/11 ECHO EF 50DIABETES MELLITUSHYPERALDOSTERONISMOBESITYTOBACCO ABUSEHYPERCHOLESTEROLEMIA VITAL SIGNS Date Observation Value Provider Body Mass Index (Ratio) 33.01 kg/m2 Yogesh Nicholas RN blood pressure, diastolic, left arm 95 mm [Hg] Yogesh Nicholas RN blood pressure, systolic, left arm 147 mm [Hg] Yogesh Nicholas RN blood pressure, diastolic, right arm 85 m m[Hg] Yogesh Nciholas RN blood pressure, systolic, right arm 140 m m[Hg] Yogesh Nicholas RN blood pressure, diastolic 95 mm[Hg] Andrew Nicholas RN blood pressure, systolic 147 mm[Hg] Yogesh Nicholas RN pulse rate 97 /min Arben Jimenez oxygen saturation, oximetry 95 % Arben Jimenez [...] Avilez alanine aminotransferase (SGPT), serum 24 1/L Duglasbannerluis carlos Avilez aspartate aminotransferase (SGOT), serum 24 [...] history E&M Marital Status: Marrie d Yogesh iNcholas RN social history reviewed E&M reviewed Yogesh [...] Payer name Policy type / Coverage type [place] red green party ID [facility] [id number] TREATMENT PLAN Date Name Carotid Duplex Bilat eral Complete Echo Cardiac Cath - Left - CNE HISTORY OF PROCEDURES Procedure Date Procedure Name Provider Procedure Notes S tatus ePrescribe - Check t his box if eRx is used Trace Yeboah MD completed
--- OUTSIDE RECORDS SUMMARY | 2024-10-29 10:42 | XMS_ITS | Continuity of Care Document ---
Author Organization [facility] Address [address] [place] [address] [place] [address] Phone Care Team Providers Care Press Operator Assistant Name Role Phone [facility] Unavailable Unavail able Geremias Cash Unavailable Unavailable Procedures Procedure Date Progressive Lens, Plastic Frames Deluxe Scratch Resistant Coating Eye Exam & Treatment Refraction Eye Exam & Treatment Refraction Advance Directives Directive Yes / No Effective Date File Name No Information Encounters Encounter Description Practice Location Reason(s) For Visit Diagnoses Date Provider Providers Copied on Encounter [facility], [address] [place] [address] [address], [place], [place], [id number], [place] tel:[phone] SEC [facility] No Information 0 [facility] . [address] [facility], [facility] [address], [place], [id number], [place]. tel:[phone] Referring Provider: Frankie Feliciano, [address] [place] [address] [address], [place], [address]. tel:[phone] sulting Provider: Geremias Cash [address] [place] [address], [place], [address]. tel:[phone] [facility], [address] [place] [address] [address], [place], [place], [id number], [place] tel:[phone] [facility] No Information 0 Miranda OD Frankie. [address] [place] [address] , [address], [place], [address], [place]. tel:[phone] Referring Provider: Kelsi Mullen MD, [address], [place], [address]. tel:[phone] [facility], [address], [place], [place], [id number], [place] tel:[phone] [facility] No Information Dec- 7-200 7 Miranda OD Frankie. [address] [facility] , [address], [place], [address], [place]. tel:[phone] Family History Family Member Type Diagnosis Age At Onset No Information Payers Payer name Insurance type Covered libertarian ID Puneet esparza(s) [employer] Plan CI [id number] Social History Type Description Quantity Date Captured [...]
== END 2024-10-29 09:49 | disposition home or self-care (01) ==
PROVIDERS: PCP Family Medicine; Visit Provider Nurse Practitioner Family
DX: R60.9 Edema, unspecified (principal); J44.9 Chronic obstructive pulmonary disease, unspecified; R06.09 Other forms of dyspnea
CPT/HCPCS: 36415; 71046; 83880; 85025

== ENCOUNTER 2025-01-19 12:19 | Outpatient (CLI) | payer MEDICARE, SELFPAY ==
[2025-01-19 13:00] VITALS: PULSE 90; O2SAT 86
[2025-01-19 13:01] VITALS: PULSE 92; O2SAT 92
[2025-01-19 13:03] VITALS: PULSE 118; O2SAT 87
[2025-01-19 13:04] VITALS: PULSE 122; O2SAT 91
[2025-01-19 13:04] LABS: Alanine Aminotransferase 36 U/L (6-35); Albumin Level 4.1 g/dL (3.5-5.1); Alkaline Phosphatase 69 U/L (38-126); Anion Gap 8 mmol/L (4-12); Aspartate Amino Transferase 42 U/L (14-36); Bilirubin,Total 0.5 mg/dL (0.2-1.3); Blood Urea Nitrogen 8 mg/dL (7-17); Calcium 9.7 mg/dL (8.4-10.2); Carbon Dioxide 29 mmol/L (22-30); Chloride 100 mmol/L (98-107); Cholesterol 146 mg/dL (0-200); Estimated Glomerular Filt Rate > 60; Glucose 126 mg/dL (65-110); HDL Direct 34 mg/dL; Potassium 3.8 mmol/L (3.4-5.0); Sodium 137 mmol/L (137-145); Total Protein 7.1 g/dL (6.3-8.2); Triglycerides 211 mg/dL (<150)
[2025-01-19 13:12] LABS: Alveolar/Arterial O2 Gradient 44.2 mmHg; Base Excess ABG 3.9 mEq/l (+/-2.0); Fractional Inspired Oxygen 21 %; HCO3 ABG 29.6 mEq/l (22.0-26.0); Oxygen Content ABG 15.4 %vol (16.0-22.0); PCO2 ABG 48.7 mmHg (35.0-45.0); PO2 FiO2 Ratio Arterial Blood 2.25 %; Total Hemoglobin 13.9 g/dL (12.0-18.0); pH ABG 7.401 (7.350-7.450)
[2025-01-19 13:19] LABS: Device ROOM AIR; Oxygen Saturation ABG 82.7 % (95.0-100.0); Oxyhemoglobin 79.1 % THb (90.0-100.0); PO2 ABG 47.2 mmHg (80.0-100.0); Site Drawn LEFT BRACHIAL
[2025-01-19 13:19] LABS: LDL Cholesterol Direct 74 mg/dL
[2025-01-19 13:33] VITALS: PULSE 89; O2SAT 92
--- NOTE | 2025-01-19 13:35 | PCRCNOTE ---
Home O2 eval faxed to office staff for new home O2 set up. Pt requesting a POC, noted on fax to office.
--- NOTE | 2025-01-19 14:32 | WPDPFTINT ---
PFT Procedure Performed PFT Procedure Performed Spirometry with Pre/Post Bronchodilator Plethysmography (Lung Vol) Diffusing Cap (DLCO) Flow Vol Loop PFT Interpretation This is a pulmonary function test with pre and post-bronchodilator spirometry, plethysmography, diffusing capacity, And rest room air arterial blood gas. The test was performed and results interpreted in accordance with the 2019 and 2005 ATS/ERS Task Force guidelines respectively using the Global Lung Function Initiative-2012 reference equations. Patient demonstrated good effort and cooperation. Reproducibility criteria were met. The quality of the pre bronchodilator spirometry maneuver was Grade A and post bronchodilator spirometry maneuver was Grade A. Findings: Spirometry: There is decreased maximal expiratory airflow at low lung volumes with concave expiratory flow tracing. The contour the inspiratory flow tracing is normal. The pre bronchodilator FVC is 1.73 L, 56% predicted. The pre bronchodilator FEV1 is 1.09 L, 46% predicted. The pre bronchodilator FEV1: FVC ratio 63%. The post bronchodilator FVC is 1.88 L, representing an 8% increase. The post bronchodilator FEV1 is 1.27 L, representing 180 mL increase which corresponds to a 17% increase. The post bronchodilator FEV1: FVC ratio is 68%. Plethysmography: The total lung capacity is 6.72 L, 119% predicted. The functional residual capacity is 4.88 L, 149% predicted. The residual volume is 4.69 L, 188% predicted. The residual volume: Total lung capacity ratio is 70%. Diffusing capacity: The diffusing capacity unadjusted for hemoglobin and carboxyhemoglobin is 10.2, 47% predicted. The diffusing capacity adjusted for alveolar volume is 3.17, 79% predicted. Rest room air arterial blood gas: The pH is 7.40, PaCO2 48.7, PaO2 47.2. In comparison to previous pulmonary function testing on 06/04/2023 the post bronchodilator FVC has decreased from 2.38 L to 1.88 L. The post bronchodilator FEV1 has decreased from 1.55 L to 1.27 L. The total lung capacity has increased from 3.92 L to 6.72 L. The functional residual capacity is increased from 2.04 L to 4.88 L. The residual volume is increased from 1.67 L to 4.69 L. The residual volume: Total lung capacity ratio is increased from 43% to 70%. The diffusing capacity unadjusted for hemoglobin and carboxyhemoglobin is decreased from 13.4 to 10.2. The diffusing capacity adjusted for alveolar volume is unchanged from 3.34 to 3.17. Impression: There is a severe obstructive abnormality. There is no significant improvement after inhaling a single dose of albuterol As the absolute increase in post bronchodilator FEV1 is less than 200 mL. The increase in residual volume to total lung volume ratio is consistent with hyperinflation from an obstructive abnormality. The diffusing capacity unadjusted for hemoglobin and carboxyhemoglobin is moderately decreased and normalizes when adjusted for alveolar volume. The rest room air arterial blood gas shows a combined respiratory acidosis and metabolic alkalosis with significant hypoxemia. In comparison to previous pulmonary function testing on 06/04/2023 there has been a greater than anticipated time dependent decrease in the FVC, FEV1 and diffusing capacity unadjusted for hemoglobin and carboxyhemoglobin. There has been a greater than anticipated time dependent increase in the total lung capacity, functional residual capacity, residual volume and residual volume: Total lung capacity ratio with no significant change in the diffusing capacity adjusted for alveolar volume.
[2025-01-19 16:04] LABS: Hemoglobin A1C 8.4 % (<5.7)
== END 2025-01-19 12:20 | disposition home or self-care (01) ==
PROVIDERS: PCP Family Medicine; Visit Provider Nurse Practitioner Family
DX: E11.9 Type 2 diabetes mellitus without complications (principal); E78.2 Mixed hyperlipidemia; J44.9 Chronic obstructive pulmonary disease, unspecified; R06.09 Other forms of dyspnea
CPT/HCPCS: 36415; 36600; 80053; 80061; 82805; 83036; 85018; 94060; 94618; 94726; 94729

== ENCOUNTER 2025-03-16 08:25 | Outpatient (CLI) | payer MEDICARE, SELFPAY ==
--- OUTSIDE RECORDS SUMMARY | 2025-03-16 08:35 | XMS_ITS | Continuity of Care Document ---
Author Organization [facility] Address [address] [place] [address] [place] [address] Phone Care Team Providers Care Body Wirer Name Role Phone [facility] Unavailable Unavail able Geremias Cash Unavailable Unavailable Procedures Procedure Date Progressive Lens, Plastic Frames Deluxe Scratch Resistant Coating Eye Exam & Treatment Refraction Eye Exam & Treatment Refraction Advance Directives Directive Yes / No Effective Date File Name No Information Encounters Encounter Description Practice Location Reason(s) For Visit Diagnoses Date Provider Providers Copied on Encounter [facility], [address] [place] [address] [address], [place], [place], [id number], [place] tel:[phone] [facility] No Information 0 [facility] . [address] [facility], [facility] [address], [place], [id number], [place]. tel:[phone] Referring Provider: Frankie Feliciano, [address] [place] [address] [address], [place], [address]. tel:[phone] sulting Provider: Geremias Cash [address] [place] [address], [place], [address]. tel:[phone] [facility], [address] [place] [address] [address], [place], [place], [id number], [place] tel:[phone] [facility] No Information 0 Miranda OD Frankie. [address] [place] [address] , [address], [place], [address], [place]. tel:[phone] Referring Provider: Kelsi Mullen MD, [address], [place], [address]. tel:[phone] [facility] [place] [facility] Eye [facility], [address], [place], [place], [id number], [place] tel:[phone] [facility] No Information Dec- 7-200 7 Miranda OD Frankie. [address] [facility] , [address], [place], [address], [place]. tel:[phone] Family History Family Member Type Diagnosis Age At Onset No Information Payers Payer name Insurance type Covered republican ID Puneet esparza(s) [employer] Plan CI [id number] Social History Type Description Quantity Date Captured [...]
--- OUTSIDE RECORDS SUMMARY | 2025-03-16 08:35 | XMS_ITS | Patient Health Record ---
Author Organization [facility] Address [address] [place] [address] Care Team Providers Care Fourth Mate Name Role Phone Avery Duggan Primary Care Provider [phone] Reason For Referral No Information Immunizations Vaccine Route Administration Date Status Comme nts COVID-19 Moderna 1ST IM Intramuscular 10/07/2020 Administe red COVID-19 Moderna 2nd IM Intramuscular 11/04/2020 Administe red Plan Of Treatment No Information Insurance Providers Payer Name Payer Address Payer Phone Subscriber Number Group Number Insured Name Patient Relationship to Insured Coverage Start Date Coverage End Date Aetna [address] [place] [phone] [id number] Naya Lopez Self - patient is the insured 2016
[2025-03-16 08:58] LABS: Alveolar/Arterial O2 Gradient 88.1 mmHg; Fractional Inspired Oxygen 28 %; HCO3 ABG 26.6 mEq/l (22.0-26.0); Oxygen Content ABG 16.7 %vol (16.0-22.0); Oxygen Saturation ABG 90.5 % (95.0-100.0); PCO2 ABG 44.4 mmHg (35.0-45.0); PO2 ABG 59.2 mmHg (80.0-100.0); PO2 FiO2 Ratio Arterial Blood 2.11 %
[2025-03-16 09:03] LABS: Liters per Minute 2.0 LPM; Modified Allen's Test Pass; Site Drawn RIGHT BRACHIAL
== END 2025-03-16 08:26 | disposition home or self-care (01) ==
PROVIDERS: PCP Family Medicine; Visit Provider Nurse Practitioner Family
DX: J44.9 Chronic obstructive pulmonary disease, unspecified (principal); R09.02 Hypoxemia
CPT/HCPCS: 36600; 82805; 85018

== ENCOUNTER 2025-04-16 12:14 | Outpatient (CLI) | payer MEDICARE, SELFPAY ==
--- NOTE | 2025-04-16 12:29 | ECHO_ITS ---
Patient Info Name: Naya Lopez Age: 74 years : 1950 Gender: Female Ht: 68 in Wt: 225 lbs BSA: 2.25 m2 HR: 65 bpm BP: 159 / 79 mmHg Technical Quality: Good Exam Date: 04/16/2025 12:55 PM Patient Status: O Admit Date: 04/16/2025 Exam Type: CA echo doppler w bubble study Complete two-dimensional, color flow and Doppler transthoracic echocardiogram is performed with agitated saline. Shower Doors And Panels Fabricator: Cynthia Varela Attending Provider: Chuy Staples Contrast/Agitated Saline Contrast/Ag. Saline: Agitated Saline Amount: 20.00 ml Summary 1. Left ventricular chamber dimension is normal. 2. Left ventricular systolic function is normal, estimated at 60-65. 3. The left ventricular diastolic function is grade I diastolic dysfunction. 4. E/e' 11 is mildly elevated. 5. Left atrial chamber dimension is mildly enlarged. Left Ventricle E/e' 11 is mildly elevated. Left ventricular chamber dimension is normal. Left ventricular systolic function is normal, estimated at 60-65. The left ventricular diastolic function is grade I diastolic dysfunction. Right Ventricle Right ventricular chamber dimension is normal. Right ventricular systolic function is normal and with normal TAPSE 1.9 cm. Left Atria Left atrial chamber dimension is mildly enlarged. Right Atria Right atrial chamber dimension is normal. Atrial Septum Intact interatrial septum visualized by 2D and agitated saline imaging. Agitated saline injection with and without valsalva maneuver opacified right side cardiac chambers without shunt to left side cardiac chambers. Aortic Valve The aortic valve is trileaflet. There is no aortic valve stenosis. There is no aortic valve regurgitation. Pulmonic Valve There is no pulmonic regurgitation. Mitral Valve There is no mitral valve stenosis. There is no mitral valve regurgitation. Tricuspid Valve There is no tricuspid valve regurgitation. Pericardium/Pleural There is no pericardial effusion. Inferior Vena Cava Normal inferior vena cava with >50% collapse upon inspiration consistent with normal right atrial pressure, 5 mmHg. Aorta The aortic root size at the sinus of Valsalva is normal. Left Ventricular Outflow Tract Name Value Normal LVOT 2D LVOT Diameter 2.0 cm LVOT Doppler LVOT Peak Velocity 145 cm/s LVOT Peak Gradient 8 mmHg LVOT Mean Gradient 4 mmHg LVOT VTI 29 cm LVOT Stroke Volume 93 ml LVOT CO 6.1 l/min LVOT CI 2.7 l/min/m2 Pulmonic Valve Name Value Normal RVOT Doppler RVOT Peak Velocity 78 cm/s RVOT Peak Gradient 2 mmHg PV Doppler PV Peak Velocity 103 cm/s PV Peak Gradient 4 mmHg Mitral Valve Name Value Normal MV Diastolic Function MV E Peak Velocity 97 cm/s MV A Peak Velocity 114 cm/s MV E/A 0.9 MV Decel Time (PW) 215 ms MV Annular TDI MV E/e' (Septal) 12.2 MV E/e' (Lateral) 11.1 MV E/e' (Average) 11.7 Tricuspid Valve Name Value Normal Estimated PAP/RSVP RA Pressure 5 mmHg <=5 Aortic Valve Name Value Normal AV Doppler AV Peak Velocity 169 cm/s AV Peak Gradient 11 mmHg AV Area (Cont Eq Arnold) 2.7 cm2 AV DI (Arnold) 0.86 AV Regurgitation 2D LVOT Area 3.2 cm2 Ventricles Name Value Normal LV Dimensions 2D/MM IVS Diastolic Thickness (2D) 1.0 cm 0.6-1.0 LVID Diastole (2D) 5.4 cm 3.8-5.2 LVIW Diastolic Thickness (2D) 1.0 cm 0.6-0.9 LVID Systole (2D) 3.3 cm 2.2-3.5 LVOT Diameter 2.0 cm LV Mass (2D Cubed) 215.18 g 67.00-162.00 LV Mass Index (2D Cubed) 96 g/m2 43-95 Relative Wall Thickness (2D) 0.39 <=0.42 LV Fractional Shortening/Ejection Fraction 2D/MM LV Fractional Shortening (2D) 38 % 27-45 LV EF (2D Teichholz) 67 % LV Diastolic Volume (4C MOD) 109 ml LV EF (4C MOD) 59 % LV Diastolic Volume (2C MOD) 124 ml LV EF (2C MOD) 65 % LV Diastolic Volume (BP MOD) 115 ml 46-106 LV Diastolic Volume Index (BP MOD) 51 ml/m2 29-61 LV Systolic Volume (BP MOD) 45 ml 14-42 LV Systolic Volume Index (BP MOD) 20 ml/m2 8-24 LV EF (BP MOD) 61 % 54-74 LV Diastolic Length (4C) 7.8 cm LV Systolic Length (4C) 6.4 cm LV Stroke Volume (4C MOD) 65 ml Atria Name Value Normal LA Dimensions LA Volume (4C A-L) 72 ml LA Volume (BP A-L) 72 ml RA Dimensions RA Area (4C) 18.4 cm2 <=18.0 Report Signatures
== END 2025-04-16 12:15 | disposition home or self-care (01) ==
PROVIDERS: PCP Family Medicine; Visit Provider Nurse Practitioner Family
DX: R06.09 Other forms of dyspnea (principal); R09.02 Hypoxemia
CPT/HCPCS: 93306; 96375

== ENCOUNTER 2025-04-24 12:33 | Outpatient (CLI) | payer MEDICARE, SELFPAY ==
--- OUTSIDE RECORDS SUMMARY | 2010-06-15 19:00 | XMS_ITS | Continuity of Care Document ---
Author Organization Formerly [facility] Address [address] [place] [address] [place] [address] Phone Care Team Providers Care Product Marketing Manager Name Role Phone [facility] Unavailable Unavail able Geremias Cash Unavailable Unavailable Procedures Procedure Date Progressive Lens, Plastic Frames Deluxe Scratch Resistant Coating Eye Exam & Treatment Refraction Eye Exam & Treatment Refraction Advance Directives Directive Yes / No Effective Date File Name No Information Encounters Encounter Description Practice Location Reason(s) For Visit Diagnoses Date Provider Providers Copied on Encounter [facility], [address] [place] [address] [address], [place], [place], [id number], [place] tel:[phone] [facility] No Information 0 [facility] . [address] [facility], [facility] [address], [place], [id number], [place]. tel:[phone] Referring Provider: Frankie Feliciano, [address] [place] [address] [address], [place], [address]. tel:[phone] sulting Provider: Geremias Cash [address] [place] [address], [place], [address]. tel:[phone] [facility], [address] [place] [address] [address], [place], [place], [id number], [place] tel:[phone] [facility] No Information 0 Miranda OD Frankie. [address] [place] [address] , [address], [place], [address], [place]. tel:[phone] Referring Provider: Kelsi Mullen MD, [address], [place], [address]. tel:[phone] [facility] Eye [facility], [address], [place], [place], [id number], [place] tel:[phone] [facility] No Information Dec- 7-200 7 Mrianda OD Frankie. [address] [facility] , [address], [place], [address], [place]. tel:[phone] Family History Family Member Type Diagnosis Age At Onset No Information Payers Payer name Insurance type Covered democrat ID Puneet esparza(s) [employer] Plan CI [id number] Social History Type Description Quantity Date Captured Comments Sex Female Smoking Status No Information Chief Complaint And Reason For Visit No Information Reason For Referral Reason For Referral No Information History Of Present Illness Encounter Date Complaint History Of Prese nt Illness No Information Functional Status Date Functional Assessmen t No Information Instructions Date Instruction Additional Infor mation No Information Assessments Type Assessment Date No Information Patient Care Teams Name Effective Dates (start - stop) Status Members No Information
--- NOTE | ~2025-04-24 | NM_ITS ---
NM lung vent and perfusion INDICATION: Hypoxemia TECHNIQUE: The patient inhaled aerosolized 15.2 mCi xenon-133. Following ventilation scan, 4.9 mCi Tc 99m MAA was injected intravenously for perfusion images. Multiple images were then acquired. COMPARISON: Chest x-ray dated 04/24/2025 FINDINGS: The comparison chest radiograph demonstrates no pulmonary infiltrates or pleural fluid. There are small matched defects bilaterally. No ventilation/perfusion mismatches are identified. There is retention of radiotracer on washout images, consistent with obstructive pulmonary disease. IMPRESSION: 1: Low probability for pulmonary embolism. Reviewed, dictated and finalized at location O.
--- NOTE | ~2025-04-24 | XR_ITS ---
Examination: XR chest 2V Clinical History: R09.02 - Hypoxemia, HX COPD Comparison: 10/29/2024 Technique: PA and Lateral Findings: Cardiomegaly. Lungs clear. No acute bony abnormality. IMPRESSION: 1. No acute cardiopulmonary findings. Reviewed, dictated and finalized at location R.
--- OUTSIDE RECORDS SUMMARY | 2025-04-24 12:39 | XMS_ITS | Patient Health Record ---
Author Organization [facility] Address [address] [place] [address] Care Team Providers Care World Travel Counselor Name Role Phone Avery Duggan Primary Care [...] Date Coverage End Date Aet[employer] [address] [place] [phone] [id number] Naya Lopez Self - patient is the insured 2016
--- OUTSIDE RECORDS SUMMARY | 2025-04-24 12:39 | XMS_ITS | Data Portability ---
Author Organization [facility], Main Office Address [address] [place] [address] Assessment No assessment recorded. Plan of Treatment Reminders Order Date Submit Date Provider Last Modified By Organization Details Last Modified Time Details Appointments None recorded. Lab hemoglobin A1C, fingerstick 2022 023 [facility] [address] Chago Hernandez, [place], [address], 3 13:00:[address] referral 2022 023 [email or web address] 3 Russel Lara, [address], [place], [address], 3 07:56:57 Procedures None recorded. Surgeries None recorded. Imaging MRI, ankle + foot, w/o contrast 2022 023 MARC Not available 3 15:28:11 US, duplex, venous, extremity, unilateral 2022 023 [facility], [address], [place], [address], 3 14:16:01 MRI, lower leg, w/o contrast - strain left calf posterolate ral 2022 023 [email or web address] 256 Not available 3 10:17:46 Medication Orders Ozempic 0.25 mg or 0.5 mg (2 mg/3 mL) subcutaneou s pen injector 2022 023 [id number] [facility], [address] [place], [address], 12:50:52 cyclobenzap rine 10 mg tablet 2022 023 [facility], [address] [place], [address], 14:20:42 ibuprofen 800 mg tablet 2022 023 [email or web address] 200 [facility] [address], [address] [place], [address], 12:06:26 Patient TargetsNo targets recorded. 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 Referral for C hronic obstructive pulmonary disease Referring Physician: Annelise Worthy, Family Medicine, Encounter Date: 04/26/2023 Results Created Date Observation Date Name Description Value Unit Range Abnormal Flag Note LastModifiedBy Organization Detail LastModifiedTime 11/17/19 23 11/16/2022 hemog lobin A1C, finge rstic k HgbA1C 7.8 Not Available [address] Chago Hernandez, [place], [address], 11/16/2022 14:33:50 04/26/20 23 04/26/2023 hemog lobin A1C, finge rstic k HgbA1C 7.0 Not Available [address] Chago Hernandez, [place], [address], 04/26/2023 12:44:13 12/30/19 23 12/29/2022 US, pretty martines s, ritika garvey No observ ation record ed. [email or web address] [place] [address] [address], [place], [address], 01/01/2023 16:15:10 02/10/20 23 MRI, ankle , w/o contr ast [facility] [address] [facility] [place] [address] Patien t Name: JAELYN LITTLE Access ion #: [id number] Sex: F : 1950 4 Dictat ed By: Tray granda Attend ing Physic hortencia: ELKHAT IB, RUNDA Orderi ng Physic hortencia: RUNDA, ELKHAT IB Exam Date: 2022 11:01 AM Exam Name: MRI ANKLE LT W/O Admitt ing Diagno sis(es ): CLINIC AL INFORM ATION: Pain, swelli ng, and erythe ma after twisti ng injury . TECHNI QUE: Multis equenc e multip lanar MRI images of the left ankle were obtain ed withou t contra st. COMPAR LITZY: None. FINDIN GS: BONES/ JOINTS : No acute fractu re or focal marrow contus ion. No osteoc hondra l defect or signif icant chondr omalac ia. No signif icant joint effusi on. TENDON S: Tibial is administrative library assistant ior, flexor digito rum longus , and flexor halluc is longus tendon s are intact . Perone us longus and brevis tendon s are intact . Tibial is anteri or, extens or halluc is longus , and extens or digito rum longus tendon s are intact . Achill es tendon is intact with no signif icant tendin osis or perite ndinit is. LIGAME NTS: Deltoi d ligame nt comple x is intact . Spring ligame nt comple x is intact . Edema and mild indist inctne ss of the fibers of the anteri or talofi bular ligame nt, likely sequel ae of sprain . Cargo Checker ior talofi bular ligame nt is intact . Syndes motic ligame nts are intact . Edema and indist inctne ss of the fibers of the calcan eofibu lar ligame nt consis tent with sprain per PLANTA R FASCIA : There is spurri ng at the planta r aspect of the calcan eus at the attach ment site of the centra l band of the planta r fascia . No tear. Minima l adjace nt soft tissue edema. SINUS TARSI: Unrema rkable . No signif icant edema. MUSCLE S: Unrema rkable . No signif icant atroph y. Page 1 [facility] [address] [place] [address] Patien t Name: JAELYN LITTLE Access ion #: [id number] Sex: F : 1950 4 Dictat ed By: Tray granda Attend ing Physic hortencia: RUNANJEL ELKHAT IB Orderi ng Physic hortencia: RUNANJEL ELKHAT IB Exam Date: 2022 11:01 AM Exam Name: MRI ANKLE LT W/O Admitt ing Diagno sis(es ): OTHER: Marked subcut aneous edema around the ankle and visual ized portio ns of the hindfo ot/mid foot. IMPRES CARLOS: 1. Sprain s of the anteri or talofi bular and calcan eofibu lar ligame nts. 2. Marked subcut aneous edema around the ankle and visual ized portio ns of the hindfo ot/mid foot. Findin gs are nonspe cific but may be due to chroni c venous stasis change s or cellul itis in the appro riate clinic al narayan gDaniel Correl ate with clinic al findin gs. 3. Additi onal nonacu te findin gs as detail ed above. Electr onical ly Signed by: Tray granda at 2022 14:22: 31 PM Page [address] (Imaging) [address] [place], [address], 02/12/2023 09:37:45 02/10/20 23 02/09/2023 MRI, ankle + foot, w/o contr ast No observ ation record ed. [facility] [address] [place], [address], 02/12/2023 09:37:45 02/10/20 23 MR foot wo contr ast, left [facility] [address] [facility] [place] [address] Patien t Name: JAELYN LITTLE Access ion #: [id number] Sex: F : 1950 4 Dictat ed By: Tray granda Attend ing Physic hortencia: ELKHAT IB, RUNDA Orderi ng Physic hortencia: RUNDA, ELKHAT IB Exam Date: 2022 11:01 AM Exam Name: MRI FOOT LT WO Admitt ing Diagno sis(es ): CLINIC AL INFORM ATION: Twiste d ankle, heard a pop one and 1/2-2 months ago. Pain, swelli ng, and erythe ma in the foot and ankle. TECHNI QUE: Multis equenc e multip lanar MRI images of the left foot were obtain ed withou t contra st. COMPAR LITZY: Patien t was made to same day left ankle MRI. FINDIN GS: No eviden ce of acute fractu re. No signif icant arthro chioma No focal marrow signal abnorm ality identi fied. Lisfra nc ligame nt is intact . Planta r plates appear intact . Bony alignm ent is within normal limits . No sublux ation or disloc ation. Slight excess first throug h third interm etatar evelyne. Marked subcut aneous edema in the dorsal aspect of the foot. No focal fluid collec tion identi fied. IMPRES CARLOS: Marked subcut aneous edema in the dorsal aspect of the foot. Findin gs may be seen with chroni c venous stasis change s or cellul itis in the approp riate clinic al settin g. No organi zed fluid collec tion identi fied. Additi onal nonacu te findin gs as detail ed above. Electr onical ly Signed by: Tray granda at 2022 14:28: 50 PM Page 1 [email or web address] [facility] (Im[facility]) [address] [facility], [place], [address], 02/12/2023 09:37:46 02/10/20 23 02/09/2023 MRI, ankle + foot, w/o contr ast No observ ation record ed. [email or web address] [facility] [address] [facility], [place], [address], 02/12/2023 09:37:46 04/10/20 23 04/10/2023 CT, abdom en + pelvi s, w/o contr ast No observ ation record ed. [address] [address], [place], [address], 04/10/2023 15:30:56 04/10/20 23 04/10/2023 XR, chest , 2 view No observ ation record ed. [address] [address], [place], [address], 04/10/2023 15:31:21 04/10/20 23 04/10/2023 US, doppl er echoc ardio gram, w/ color flow No observ ation record ed. [address] [address], [place], [address], 04/11/2023 08:32:51 05/29/20 23 05/28/2023 CT, chest , w/o contr ast No observ ation record ed. [address] [address], [place], [address], 05/29/2023 08:39:27 05/29/20 23 05/28/2023 CT, chest , w/o contr ast No observ ation record ed. [email or web address] [address], [place], [address], 05/29/2023 16:56:51 06/04/20 23 06/04/2023 pulmo nary funct ion test* No observ ation record ed. [address] [address], [place], [address], 06/05/2023 10:52:58 06/12/20 23 06/12/2023 JACQUESO , jesus lanier, digit al, bilat sadel No observ ation record ed. [email or web address] [facility] [address] [place], [address], 06/12/2023 15:07:20 Result Notes Documentation Provider Name and Address Organization Details Recorded Time Mri, Ankle, W/o Contrast : [facility] [address] [place] [address] Patient Name: RUSSEL LOPEZ Sex: F : 1950 Dictated By: Harrison Lyn Attending Physician: ANNELISE HARDING Ordering Physician: EMHDI LE Exam Date: 02/09/2023 11:01 AM Exam Name: MRI ANKLE LT W/O Admitting Diagnosis(es): CLINICAL INFORMATION: Pain, swelling, and erythema after twisting injury. TECHNIQUE: Multisequence multiplanar MRI images of the left ankle were obtained without contrast. COMPARISON: None. FINDINGS: BONES/JOINTS: No acute fracture or focal marrow contusion. No osteochondral defect or significant chondromalacia. No significant joint effusion. TENDONS: Tibialis posterior, flexor digitorum longus, and flexor hallucis longus tendons are intact. Peroneus longus and brevis tendons are intact. Tibialis anterior, extensor hallucis longus, and extensor digitorum longus tendons are intact. Achilles tendon is intact with no significant tendinosis or peritendinitis. LIGAMENTS: Deltoid ligament complex is intact. Spring ligament complex is intact. Edema and mild indistinctness of the fibers of the anterior talofibular ligament, likely sequelae of sprain. Posterior talofibular ligament is intact. Syndesmotic ligaments are intact. Edema and indistinctness of the fibers of the calcaneofibular ligament consistent with sprain per PLANTAR FASCIA: There is spurring at the plantar aspect of the calcaneus at the attachment site of the central band of the plantar fascia. No tear. Minimal adjacent soft tissue edema. SINUS TARSI: Unremarkable. No significant edema. MUSCLES: Unremarkable. No significant atrophy. Page 1 [facility] [address] [place] [address] Patient Name: RUSSEL LOPEZ Sex: F : 1950 Dictated By: Harrison Lyn Attending Physician: MEHDI LE Ordering Physician: MEHDI LE Exam Date: 02/09/2023 11:01 AM Exam Name: MRI ANKLE LT W/O Admitting Diagnosis(es): OTHER: Marked subcutaneous edema around the ankle and visualized portions of the hindfoot/midfoot. IMPRESSION: 1. Sprains of the anterior talofibular and calcaneofibular ligaments. 2. Marked subcutaneous edema around the ankle and visualized portions of the hindfoot/midfoot. Findings are nonspecific but may be due to chronic venous stasis changes or cellulitis in the appropriate clinical setting. Correlate with clinical findings. 3. Additional nonacute findings as detailed above. Page 2 Annelise Worthy MD [address], [address], [facility] 02/12/2023 09:37:45 Problems Name Problem SNOMED Code Status Onset Date Resolution Date Notes Provider Name and Address Organization Details Recorded Time Acute bronchitis 75711516 Active Not Available [facility] 3 14:12:19 Injury of foot 420895589 Active Not Available [facility] 3 14:12:19 Chronic obstructiv e pulmonary disease 32213055 Active Not Available [facility] 3 14:12:19 Acute sinusitis 47085647 Active Not Available [facility] 3 14:12:19 Abdominal pain 84188305 Active Not Available [facility] 3 14:12:19 Pneumonia 957156084 Active Not Available [facility] 3 14:12:19 Gastroesop hageal reflux disease 457345163 Active Not Available [facility] 3 14:12:19 Proteinuri a 50582444 Active Not Available [facility] 3 14:12:19 Lesion of external ear 620007459 Active Not Available [facility] 3 14:12:19 Type 2 diabetes mellitus without complicati on 230730743 Active Not Available [facility] 3 14:12:19 Vitamin D deficiency 60277395 Active Not Available [facility] 3 14:12:19 Depressive disorder 70720414 Active Not Available [facility] 3 14:12:19 Sinusitis 09737361 Active Not Available [facility] 3 14:12:19 Fever 763730771 Active Not Available [facility] 3 14:12:19 Pharyngiti s 402714577 Active Not Available [facility] 3 14:12:19 Anxiety 99468840 Active Not Available [facility] 3 14:12:19 Cough 81312990 Active Not Available [facility] 3 14:12:19 Candidiasi s of skin 13576543 Active Not Available [facility] 3 14:12:19 Hyperlipid emia 65002657 Active Not Available [facility] 3 14:12:19 Essential hypertensi on 90229528 Active Not Available [facility] 3 14:12:19 Diabetes mellitus 94036592 Active Not Available [facility] 3 14:12:19 Posterior rhinorrhea 09836891 Active Not Available [facility] 3 14:12:19 Smoker 53297547 Active Not Available [facility] 3 14:12:19 Candidiasi s of mouth 42347848 Active Not Available [facility] 3 14:12:19 Pernicious anemia 23043957 Active Not Available [facility] 3 14:12:20 Fatigue 93289881 Active Not Available [facility] 3 14:12:20 Hypercalce michael 41359853 Active 2021 Not Available [facility] 3 14:12:19 Pruritic disorder 731185849 Active 2022 Not Available [facility] 3 14:12:19 Strain of calf muscle 358154752 Active 2022 Not Available [facility] 3 14:12:19 Vaginitis 79410870 Active 2022 Not Available [facility] 3 14:12:19 Edema of left lower leg 012809161 Active 2022 Not Available [facility] 3 14:12:20 Acute vaginitis 11076293 Active 2022 Not Available [facility] 3 14:12:19 Pain of left knee joint 2648307061350 07 Active 2022 Not Available [facility] 3 14:12:19 Pain of left ankle joint 1912036408221 9103 Active 2022 Not Available [facility] 3 14:12:19 Nausea 262331796 Active 2022 Annelise Worthy MD [address] [facility], [address], [address] , [place] 3 10:57:53 Edema of lower extremity 445792944 Active 2022 Annelise Worthy MD [address] [facility], [address] [address], [place], [address] , [place] 3 12:37:32 Salmonella gastroente ritis 03830209 Active 2022 Annelise Worthy MD [address] [facility], [address], [address] , [place] 3 20:01:58 Problem Notes None recorded. Procedures Surgical History Date Name Laterality Status Provider Name and Address Organization Details Recorded Time Medicare Wellness CPT Code, subsequent completed Mackenzie Edge RN [facility] 11/10/2022 12:44:57 Imaging Results None recorded. Procedure Notes None recorded. Medical Equipment None Reported. Allergies Allergen ID Allergen Name Allergen Category Reaction Reaction Severity Criticality Documentation Date Start Date Code Code System Note Provider Name and Address Organization Details Recorded Time 6786 lisinopri l medicatio n cough Not available Not available 09/27/2022 06748 RxNorm Not Available [facility] 3 04:45:10 Medications Name Sig Start Date Stop Date Status Note LastModified by Organization Details LastModified Time cyclobenz aprine 10 mg tablet TAKE 1 TABLET BY MOUTH EVERY DAY AT BEDTIME FOR 30 DAYS active Not Available Not Available No t Available clotrimaz ole 10 mg ailyn Take 1 tablet 5 times a day by oral route. 06/14 completed Not Available Not Available Not Available metformin 500 mg tablet TAKE 2 TABLETS BY MOUTH TWICE A DAY active Not Available Not Available No t Available promethaz ine-DM 6.25 mg-15 mg/5 mL oral syrup TK 5 ML PO Q 4 H 03/09 completed Not Available Not Available Not Available azelastin e 0.05 % eye drops INSTILL 1 DROP INTO AFFECTED EYE TWICE A DAY 11/16 completed Not Available Not Available Not Available prednison e 10 mg tablet TAKE 2 TABLETS (20MG) ONCE DAILY FOR 5 DAYS 12/29 completed Not Available Not Available Not Available cefuroxim e axetil 250 mg tablet 06/24 completed Not Available Not Available Not Available atorvasta tin 10 mg tablet 06/14 completed Not Available Not Available Not Available ibuprofen 800 mg tablet TAKE 1 TABLET BY MOUTH THREE TIMES A DAY WITH MEALS active Not Available Not Available No t Available fluconazo le 150 mg tablet TAKE 1 TABLET BY MOUTH EVERY 3RD DAY active Not Available Not Available No t Available benzonata te 200 mg capsule Take 1 capsule 3 times a day by oral route as needed. 11/16 completed Not Available Not Available Not Available metoprolo l succinate ER 50 mg tablet,ex tended release 24 hr TAKE 2 TABLETS BY MOUTH EVERY DAY active Not Available Not Available No t Available B Complex-V itamin B12 tablet 1 tab daily 06/14 completed Not Available Not Available Not Available Celestone Soluspan 6 mg/mL suspensio n for injection active Not Available Not Available No t Available Keflex 500 mg capsule Take 1 capsule 3 times a day by oral route for 10 days. 02/07 completed Not Available Not Available Not Available ondansetr on HCl 8 mg tablet TAKE 1 TABLET BY MOUTH THREE TIMES A DAY NEEDED active Not Available Not Available No t Available Medrol (Jose) 4 mg tablets in a dose pack use as directed 11/16 completed Not Available Not Available Not Available metoprolo l succinate ER 100 mg tablet,ex tended release 24 hr Take 1 tablet every day by oral route. active takes only 1/2 tablet Not Available Not Available Not Available Rocephin 1 gram solution for injection active Not Available Not Available No t Available Zithromax Z-Jose 250 mg tablet TAKE 2 TABLETS (500 MG) BY ORAL ROUTE ONCE DAILY FOR 1 DAY THEN 1 TABLET (250 MG) BY ORAL ROUTE ONCE DAILY FOR 4 DAYS 11/16 completed Not Available Not Available Not Available amlodipin e 2.5 mg tablet 1 po daily 01/12 completed Not Available Not Available Not Available amlodipin e 5 mg tablet TAKE 1 TABLET BY MOUTH EVERY DAY active Not Available Not Available No t Available ciproflox acin 500 mg tablet TAKE 1 TABLET BY MOUTH EVERY 12 HOURS FOR 10 DAYS active Not Available Not Available No t Available tramadol 50 mg tablet Take 1 tablet every 6 hours by oral route for 5 days. active Not Available Not Available No t Available triamcino lone acetonide 0.1 % topical cream APPLY THIN COAT TO AFFECTED AREA TWICE A DAY active Not Available Not Available No t Available promethaz ine-pheny lephrine 6.25 mg-5 mg/5 mL oral syrup TK 5 ML PO Q 4 TO 6 HOURS PRN FOR COUGH 05/14 completed Not Available Not Available Not Available losartan 100 mg-hydroc hlorothia zide 25 mg tablet TAKE 1 TABLET BY MOUTH EVERY DAY active Not Available Not Available No t Available Tessalon Perles 100 mg capsule Take 1 capsule 3 times a day by oral route for 10 days. 06/24 completed Not Available Not Available Not Available amoxicill in 875 mg tablet Take 1 tablet every 12 hours by oral route with meals for 10 days. active Not Available Not Available No t Available alprazola m 0.25 mg tablet TAKE 1 TABLET BY MOUTH THREE TIMES A DAY NEEDED active Not Available Not Available No t Available OneTouch Ultra Test strips Take 1 strip every day by miscell. route. active Not Available Not Available No t Available cyanocoba isamar (vit B-12) 1,000 mcg/mL injection solution Inject 1 mL every month by intramus cular route. active [facility]#:[phone] 1 Not Available Not Available Not Available neomycin- polymyxin -dexameth 3.5 mg/mL-10, 000 unit/mL-0 .1% eye drops INSTILL 1 DROP INTO AFFECTED EYE(S) EVERY 3 TO 4 HOURS 11/16 completed Not Available Not Available Not Available polymyxin B sulfate 10,000 unit-trim ethoprim 1 mg/mL eye drops 06/14 completed Not Available Not Available Not Available hydrochlo rothiazid e 12.5 mg capsule Take 1 capsule every day by oral route for 90 days. active Not Available Not Available No t Available omeprazol e 20 mg capsule,d elayed release TAKE 1 CAPSULE BY MOUTH EVERY DAY IN THE MORNING active Not Available Not Available No t Available aspirin 81 mg chewable tablet Chew 1 tablet every day by oral route. 2012 active Not Available Not Available Not Avai lable monteluka st 10 mg tablet TAKE 1 TABLET BY MOUTH EVERY DAY active Not Available Not Available No t Available ceftriaxo ne 500 mg solution for injection [facility]#: [id number] 02-27 Not Available Not Available Not Available mupirocin 2 % topical ointment 05/14 completed Not Available Not Available Not Available metoprolo l succinate ER 25 mg tablet,ex tended release 24 hr Take 1 tablet every day by oral route. 06/02 completed Not Available Not Available Not Available levofloxa marvin 500 mg tablet Take 1 tablet every 24 hours by oral route for 7 days. 12/19 completed Not Available Not Available Not Available levofloxa marvin 750 mg tablet TAKE 1 TABLET BY MOUTH EVERY DAY active Not Available Not Available No t Available albuterol sulfate HFA 90 mcg/actua tion aerosol inhaler Inhale 2 puffs every 4 hours by inhalati on route as needed for 90 days. active Not Available Not Available No t Available hydrocort isone 1 %-iodoqui nol 1 % topical cream Apply 1 applicat ion twice a day by topical route for 14 days. active Not Available Not Available No t Available cefdinir 300 mg capsule TK ONE C PO BID 06/14 completed Not Available Not Available Not Available losartan 100 mg tablet Take 1 tablet every day by oral route. 06/02 completed put it in a combo pill with HCTZ Not Available Not Available Not Available multivita min capsule 1 PO QD 2012 active Not Available Not Available Not Avai lable fluticaso ne propionat e 50 mcg/actua tion nasal spray,cecille pension active Not Available Not Available Not Available metformin ER 500 mg tablet,ex tended release 24 hr TAKE ONE TABLET BY MOUTH EVERY DAY WITH SUPPER 11/16 completed Not Available Not Available Not Available sertralin e 50 mg tablet Take 1 tablet every day by oral route for 30 days. 02/04 completed made her dizzy Not Available Not Available Not Available doxycycli ne hyclate 100 mg tablet 06/24 completed Not Available Not Available Not Available Ambien 10 mg tablet Take 1 tablet every day by oral route. 2012 active pt. stopped taking Not Available Not Available Not Available amoxicill in 875 mg-potass ium clavulana te 125 mg tablet Take 1 tablet every 12 hours by oral route for 10 days. 12/29 completed Not Available Not Available Not Available escitalop radha 10 mg tablet active Not Available Not Available Not Available Vitamin D3 25 mcg (1,000 unit) capsule Take 1 capsule every day by oral route. 05/14 completed Not Available Not Available Not Available bupropion HCl XL 150 mg 24 hr tablet, extended release TAKE 1 TABLET BY MOUTH EVERY DAY active Not Available Not Available No t Available tiotropiu m bromide 18 mcg capsule with inhalatio n device INHALE THE CONTENTS OF ONE CAPSULE DAILY active Not Available Not Available No t Available metformin ER 1,000 mg tablet,ex tended release 24hr (osmotic) TAKE ONE TABLET TWICE DAILY 09/28 completed Not Available Not Available Not Available ezetimibe 10 mg-simvas tatin 10 mg tablet TAKE 1 TABLET BY MOUTH EVERY DAY active Not Available Not Available No t Available OneTouch UltraSoft Lancets 1x daily active Not Available Not Available Not Available losartan 100 mg-hydroc hlorothia zide 12.5 mg tablet TAKE 1 TABLET BY MOUTH EVERY DAY active Not Available Not Available No t Available metoprolo l succinate 50 mg ER 2 tabs daily. 03/01 completed Not Available Not Available Not Available OneTouch UltraMini kit active Not Available Not Available Not Available Januvia 100 mg tablet active Not Available Not Available Not Available hydrochlo rothiazid e 12.5 mg tablet Take 1 tablet every day by oral route. 06/02 completed put in combo pill with losartan Not Available Not Available Not Available Symbicort 80 mcg-4.5 mcg/actua tion HFA aerosol inhaler Inhale 2 puffs twice a day by inhalati on route for 90 days. active Not Available Not Available No t Available budesonid e-formote rol HFA 160 mcg-4.5 mcg/actua tion aerosol inhaler USE 2 INHALATI ONS ORALLY TWICE DAILY active Not Available Not Available No t Available Chantix Continuin g Month Jose 1 mg tablet Take 1 tablet twice a day by oral route. 03/09 completed Not Available Not Available Not Available metformin ER 1,000 mg 24 hr tablet,ex tended release (gastric reten.) Take 1 tablet twice a day by oral route. 12/18 completed Not Available Not Available Not Available Suprep Bowel Prep Kit 17.5 gram-3.13 gram-1.6 gram oral solution active 05/12/20 15 Not Available Not Available Not Available Karla Allergy 180 mg tablet Take 1 tablet every day by oral route. active Not Available Not Available No t Available Chantix Starting Month Box 0.5 mg (11)-1 mg (42) tablets in dose pack take one tablet of 0.05 mg once daily for 3 days then one 0.05 mg twice daily for 4 days then 1mg twice daily active Not Available Not Available No t Available azelastin e 137 mcg-fluti casone 50 mcg/spray nasal spray SPRAY 1 SPRAY INTO EACH NOSTRIL TWICE A DAY FOR 30 DAYS 11/16 completed Not Available Not Available Not Available Breo Ellipta 100 mcg-25 mcg/dose powder for inhalatio n 03/09 completed Not Available Not Available Not Available Jardiance 25 mg tablet Take 1 tablet every day by oral route for 30 days. active Not Available Not Available No t Available Trelegy Ellipta 100 mcg-62.5 mcg-25 mcg powder for inhalatio n 1 Inhalati on daily active Not Available Not Available No t Available Ozempic 0.25 mg or 0.5 mg (2 mg/3 mL) subcutane ous pen injector 0.25 every week for 4 weeks then 0.5 mg weekly x 4 weeks active Not Available Not Available No t Available Vitals Date Recorded Body height Body mass index (BMI) Body weight Body temperature Oxygen saturation Oxygen saturation in Arterial blood by Pulse oximetry Heart rate Systolic And Diastolic Provider Name and Address Organization Details Last Updated DateTime 3 175.26 cm 34.5 kg/m2 545127. 9 g 97.9 [degF] 83 % 83 % 94 /min 132/76 mm[Hg] Sofia Benson MA [facility] [employer] [facility] 3 14:10:10 Date Recorded Body height Body mass index (BMI) Body weight Body temperature Heart rate Oxygen saturation Oxygen saturation in Arterial blood by Pulse oximetry Systolic And Diastolic Provider Name and Address Organization Details Last Updated DateTime 3 175.26 cm 34.4 kg/m2 601006. 02 g 98.2 [degF] 85 /min 95 % 95 % 126/84 mm[Hg] Sofia Benson MA [facility] [employer] [facility] 3 11:58:02 Date Recorded Body height Body mass index (BMI) Body weight Body temperature Heart rate Oxygen saturation Oxygen saturation in Arterial blood by Pulse oximetry Systolic And Diastolic Provider Name and Address Organization Details Last Updated DateTime 3 175.26 cm 34 kg/m2 555079. 25 g 96.4 [degF] 84 /min 96 % 96 % 150/76 mm[Hg] SAMUEL Fulton [facility] [employer] [facility] 3 12:25:19 Date Recorded Body height Body mass index (BMI) Body weight Body temperature Heart rate Oxygen saturation Oxygen saturation in Arterial blood by Pulse oximetry Systolic And Diastolic Provider Name and Address Organization Details Last Updated DateTime 3 175.26 cm 37.1 kg/m2 808069. 68 g 98.5 [degF] 88 /min 91 % 91 % 118/64 mm[Hg] Cristina guerrero CMA [facility] [employer] [facility] 3 12:16:45 Date Recorded Body height Body mass index (BMI) Body weight Body temperature Heart rate Oxygen saturation Oxygen saturation in Arterial blood by Pulse oximetry Systolic And Diastolic Provider Name and Address Organization Details Last Updated DateTime 3 175.26 cm 34 kg/m2 629415. 25 g 97.8 [degF] 83 /min 95 % 95 % 134/72 mm[Hg] Sofia Benson MA [place] [facility] 3 10:26:53 Social History Question Answer Notes LastModified by Organizat ion Details LastModified Time Tobacco Smoking Status Current Every Day Smoker Not Available [facility] 09/27/2022 04:30:51 Do You Have An Advance Directive? Yes Information not available 11/10/2022 Are You Blind Or Do You Have Difficulty Seeing? No Information not available 11/10/2022 What Is Your Level Of Caffeine Consumption? Moderate [id number] Information not available 12/05/2022 In The 14 Days Before Symptom Onset, Have You Had Close Contact With A Laboratory-confi rmed COVID-19 While That Case Was Ill? No [id number] Information not available 09/27/2022 In The 14 Days Before Symptom Onset, Have You Had Close Contact With A Person Who Is Under Investigation For COVID-19 While That Person Was Ill? No [id number] Information not available 09/27/2022 Are You Deaf Or Do You Have Serious Difficulty Hearing? No Information not available 11/10/2022 What Type Of Diet Are You Following? REGULAR Information not available 11/10/2022 Have There Been Any Changes To Your Family Or Social Situation? No Information not available 11/10/2022 Do You Use Insect Repellent Routinely? No Information not available 11/10/2022 Where Do You Live? [facility] Information not available 11/10/2022 Presence Of Domestic Violence No Information not available 11/10/2022 Are You Able To Care For Yourself? Yes Information not available 11/10/2022 Are You Blind Or Do Yo Have Difficulty Seeing? No Information not available 11/10/2022 Are You Deaf Or Do You Have Serious Difficulty Hearing? No Information not available 11/10/2022 Live Alone Of With Others? With Others Information not available 11/10/2022 Do You Have A Medical Power Of Project Director? Yes Information not available 11/10/2022 What Was The Date Of Your Most Recent Tobacco Screening? 11/10/2022 Information not available 11/10/2022 What Is Your Relationship Status? Information not available 11/10/2022 Do You Use Your Seat Belt Or Car Seat Routinely? Yes Information not available 11/10/2022 Do You Have Smoke And Carbon Monoxide Detectors In Your Home? Yes Information not available 11/10/2022 At What Age Did You Start Smoking Tobacco? 15 [id number] Information not available 09/27/2022 Are You Passively Exposed To Smoke? Yes Information not available 11/10/2022 Are There Any Smokers In Your House? Yes Information not available 11/10/2022 How Much Tobacco Do You Smoke? 1 PPD [id number] Information not available 09/27/2022 Do You Participate In Social Media? Yes Information not available 12/05/2022 Do You Use Sunscreen Routinely? No Information not available 11/10/2022 How Many Years Have You Smoked Tobacco? 55 [id number] Information not available 09/27/2022 Do You Have Difficulty Walking Or Climbing Stairs? No Information not available 11/10/2022 Do You Have Any Dietary Restrictions? No Information not available 11/10/2022 Sex: Unknown Functional Status Question Answer Note LastModified by MideoMe ion Details LastModified Time What is your level of alcohol consumption? None [id number] Information not available 09/27/2022 Do you have access to reliable transportation? No Information not available 11/10/2022 Are you able to walk independently without assistance or assistive devices? YESWOREST Information not available 11/10/2022 Do you have difficulty doing errands alone? No Information not available 11/10/2022 Are you able to care for yourself independently? Yes Information not available 11/10/2022 Do you have difficulty dressing, bathing, grooming, or toileting? No Information not available 11/10/2022 What is your exercise level? None Information not available 11/10/2022 Mental Status Question Answer Note LastModified by Organizat ion Details LastModified Time Do you feel stressed (tense, restless, nervous, or anxious, or unable to sleep at night)? [id number] Information not available 12/05/2022 Do you have difficulty concentrating, remembering or making decisions? No Information no t available 11/10/2022 Family History Relationship Description Onset Age of this Age Resolved Age Notes LastModified by Organization Details LastModified Time Brother Diabetes mellitus [id number] Not available 09/27/2022 04:31:05 Brother Diabetes mellitus [id number] [id number] Not available 09/27/2022 04:31:05 Brother Diabetes mellitus [id number] [id number] Not available 09/27/2022 04:31:05 Brother Family history of malignant neoplasm prosta te [id number] [id number] Not available 09/27/2022 04:31:05 Brother Family history of malignant neoplasm colon [id number] Not available 09/27/2022 04:31:05 Mother Diabetes mellitus [id number].573 [id number] Not available 09/27/2022 04:31:05 Sister Diabetes mellitus [id number].519 [id number] Not available 09/27/2022 04:31:05 Father Myocardial infarction [id number].472 [id number] Not available 09/27/2022 04:31:05 Medical History No medical history recorded. Gynecological HistoryNo gynecological history recorded. Obstetrics History GPAL:G 0 P 0 0 0 0 Immunizations Vaccine Type Date Status Note Provider Nam e and Address Organization Details Recorded Time Tdap 08/03/2010 completed Not Available [facility] 02/13/2023 14:12:20 Past Encounters Encounter ID Performer Location Encounter Start Date Encounter Closed Date Diagnosis/Indication Diagnosis SNOMED-CT Code Diagnosis ICD10 Code Diagnosis IMO Codes Diagnosis Note [id number] Annelise Worthy MD [facility] [address] [facility] [address] [place] [address] 11/25/2020 00:00:00 11/25/2020 21:13:35 [id number] Annelise Worthy MD [facility] [address] [place] [address] 01/24/2021 00:00:00 01/24/2021 22:07:25 [id number] Annelise Worthy MD [facility] [place] [address] [place] [address] 02/28/2021 00:00:00 02/28/2021 10:11:57 [id number] Annelise Worthy MD [facility] [place] [address], [place] [address] 03/15/2021 00:00:00 03/16/2021 06:30:40 [id number] Annelise Worthy MD [facility] [place] [address] [place] [address] 06/15/2021 00:00:00 06/15/2021 20:30:33 [id number] Annelise Worthy MD [facility] [place] [address] [place] [address] 09/20/2021 00:00:00 09/21/2021 05:55:56 [id number] Annelise Worthy MD [facility] [place] [address] [place] [address] 12/19/2021 00:00:00 12/19/2021 19:00:39 [id number] Annelise Worthy MD [facility] [place] [address] [place] [address] 03/23/2022 00:00:00 03/23/2022 20:35:09 [id number] Annelise Worthy MD [facility] [place] [address] [place] [address] 08/14/2022 00:00:00 08/14/2022 19:59:02 [id number] Annelise Worthy MD [facility] [place] [address] [place] [address] 11/16/2022 14:03:12 11/16/2022 14:46:41 Adult health examination 821324202 Z00.00 Screening for disorder 235000348 Z13.9 Chronic ob structive pulmonary disease 04930236 J44.9 Use proair 4 times a day as needed. Type 2 frank betes mellitus without complication 952505235 E11.9 A1C is 7.8% Needs to start another medication for this. Will start jardiance 25 mg Recheck in 3 months Pruritic disorder 088789 002 L29.9 [id number] Annelise Worthy MD [facility] Viky [place] [address] [place] [address] [place] [address] 12/05/2022 13:46:05 12/05/2022 14:26:10 Strain of calf muscle 210808142 S86.112A [id number] Annelise Worthy MD [facility] [place]ra [address] [place] [address] [place] [address] 12/29/2022 11:44:48 12/29/2022 12:19:53 Edema of left lower leg 540223659 R60.0 Hold the amlodipine . If doppler is negative needs to use compressio n and elevate legs. [id number] Annelise Worthy MD [facility] Vik[address]ston [address] [place] [address] [place] [address] 01/24/2023 12:16:39 01/24/2023 12:56:04 Pain of left ankle joint 9704079804 6284363 M25.572 Has swelling and had trauma to left ankle Edema of l eft lower leg 951808384 R60.0 Use compressio n stockings and elevate leg Type 2 frank betes mellitus without complication 022103201 E11.9 A1C is 7.8% Needs to start another medication for this. Due for A1C and other labs in 03/21 [id number] Annelise Worthy MD [facility] [address] [address] [place] [address] [place] [address] 04/26/2023 12:05:55 04/26/2023 13:00:02 Chronic obstructive pulmonary disease 24275446 J44.9 Use O2 daily. Edema of l ower extremity 423337481 R60.0 Compressio n and elevation Type 2 frank betes mellitus without complication 917973899 E11.9 A1C is 7%. Continue same meds Salmonella gastroenteritis 92412425 A02.0 Resolved [id number] Annelise Worthy MD [facility] [address] [place] [address] 06/08/2023 10:05:50 06/08/2023 10:49:22 Chronic obstructive pulmonary disease 12087730 J44.9 Was taken off oxygenNeed s to see pulmonolog ist 07/19/23 has an appt. Type 2 frank betes mellitus without complication 647374268 E11.9 A1C is 7%. Continue same meds Recheck A1C in 1 months. Health Concerns Section Related Observation LastModified by Organization Detai ls LastModified Time None Recorded Concern Status LastModified by Organization Details LastModified Time None Recorded Advance Directives Directive Y: Payers Insurance Date Sequence Insurance Name Policy Number Policy Carcamo Covered Member ID Carcamo Member ID Guarantor Name 07/31/2023 1 [employer] (MEDICARE REPLACEMENT /ADVANTAGE - PPO) [id number] 1 Russel Lopez [id number] Russel Lopez Notes Date Note Type Note Provider Name and Address Organization Details Recorded Time 12/05/2022 text/html ROS as noted in the HPI raised left knee up to take take a step , felt an intense pain in posterolateral calf , superiorly , heard a pop , pain let up , but is limping now SHELLY Mclaughlin [address], [place], [address], [place] [facility] [employer] 12/06/2022 12:10:58 12/29/2022 text/html Here today for leg swelling on left leg. In the evenings it is swollen can hardly walk on it. Going on x 6 months. Takes tylenol and no ibuprofen. There is fmhx of blood clots. It gets really tight by the evening. Denies sob more than usual Has COPD. No chest pain or any other problems. Annelise Worthy MD [address], [place], [address], [employer] 12/29/2022 19:04:41 01/24/2023 text/html Here today for swelling of left leg and foot. Venous doppler was negative but still having pain and swelling in ankle. This happened after a pop in left lower leg. Sustained trauma and has pain in ankle and in foot. Annelise Worthy MD [address], [place], [address], [employer] [employer] 01/25/2023 08:28:31 04/26/2023 text/html Here today for hospitalization. Had abdominal pain and diarrhea and found to have salmonella Pt was hospitalized x 5 days and given IV antibx. Her O2 was low while in hospital and was sent home with oxygen. Pt does not use it all the time. She is still smoking a couple of cigarettes per day. Pt report swelling of legs and is not using compression stockings because they are too tight and leg itches. Uses a lotion for this Has triamcinolone at home but is not using this at this time.Pt is also due for A1C check. Last one was 7.8%. Annelise Worthy MD [address], [place], [address], [employer] 04/26/2023 20:02:59 06/08/2023 text/html Here today for f/u COPD. Using albuterol and symbicort and spiriva. Trying to quit smoking. Is down to 10 cigs per day and was smoking 11/2 ppd. Pt had PFTs which showed obstructive and restrictive lung disease. She will need to see personal assistant. Annelise Worthy MD [address], [place], [address], [employer] [employer] 06/08/2023 17:11:25 OBGyn Episode No OBEpisode recorded.
== END 2025-04-24 12:34 | disposition home or self-care (01) ==
PROVIDERS: PCP Family Medicine; Visit Provider Nurse Practitioner Family
DX: R09.02 Hypoxemia (principal); R06.09 Other forms of dyspnea
CPT/HCPCS: 71046; 78582; A9540; A9558

== ENCOUNTER 2025-07-07 13:03 | Outpatient (CLI) | payer MEDICARE, SELFPAY ==
[2025-07-07 13:23] LABS: Hematocrit 43.4 % (37.0-47.0); Hemoglobin 13.1 g/dL (12.0-15.0); Immature Granulocyte Percent A 0.4 % (0-0.5); Lymphocytes Absolute Auto 2.09 K/mm3 (0.9-3.2); Mean Corpuscular HGB Conc 30.2 g/dl (32-36); Mean Corpuscular Hemoglobin 24.9 pg (26-34); Mean Corpuscular Volume 82.5 fl (80-100); Nucleated Red Blood Cells Absolute Auto 0.000 K/mm3 (0.0-0.012); Nucleated Red Blood Cells Perc 0.0 % (0.0-0.2); Platelet Count Result 332 k/mm3 (150-375); Red Blood Count 5.26 M/mm3 (4.2-5.4); White Blood Count 11.8 K/mm3 (4.5-10.0)
[2025-07-07 13:53] LABS: Alanine Aminotransferase 41 U/L (6-35); Albumin Level 4.4 g/dL (3.5-5.1); Alkaline Phosphatase 78 U/L (38-126); Anion Gap 6 mmol/L (4-12); Aspartate Amino Transferase 51 U/L (14-36); Bilirubin,Total 0.5 mg/dL (0.2-1.3); Blood Urea Nitrogen 9 mg/dL (7-17); Calcium 9.7 mg/dL (8.4-10.2); Carbon Dioxide 31 mmol/L (22-30); Chloride 98 mmol/L (98-107); Cholesterol 157 mg/dL (0-200); Estimated Glomerular Filt Rate > 60; Glucose 140 mg/dL (65-110); HDL Direct 40 mg/dL; Potassium 3.7 mmol/L (3.4-5.0); Sodium 135 mmol/L (137-145); Total Protein 7.7 g/dL (6.3-8.2); Triglycerides 174 mg/dL (<150)
[2025-07-07 14:11] LABS: Hemoglobin A1C 8.6 % (<5.7)
== END 2025-07-07 13:04 | disposition home or self-care (01) ==
LOC: ANHLAB 13:05
PROVIDERS: PCP Family Medicine Adolescent Medicine
DX: R53.83 Other fatigue (principal); E78.2 Mixed hyperlipidemia; E11.9 Type 2 diabetes mellitus without complications
CPT/HCPCS: 36415; 80053; 80061; 83036; 85025